=== PATIENT | female | born 1965 | race Caucasian/White ===

== ENCOUNTER 2017-04-25 10:53 | Emergency (ER) | payer BC ==
[2017-04-25 12:59] VITALS: BP 131/85
--- NOTE | 2017-04-25 13:17 | UC ---
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 Denies n/v/d - History of Current Complaint Chief Complaint: UCRespiratory Stated Complaint: SORE THROAT Time Seen by Provider: 04/25/17 11:57 Hx Obtained From: Patient Hx Last Menstrual Period: 02/07/17 Onset/Duration: Sudden Onset Severity Initially: Moderate Severity Currently: Moderate Pain Scale Used: 0-10 Numeric - 5 - Allergies/Home Medications Allergies/Adverse Reactions: Allergies Allergy/AdvReac Type Severity Reaction Status Date / Time Wasp Venom Protein Allergy Severe Anaphylatic Verified 02/08/17 14:35 Shock Bee Venom Allergy Airway Verified 02/08/17 14:35 Obstruction egg plant Allergy Hives Uncoded 04/25/17 11:13 lobster Allergy Difficulty Uncoded 04/25/17 11:13 Breathing STEROIDS AdvReac Severe See Comment Uncoded 02/08/17 14:35 Home Medications: Home Medications busPIRone TAB* [Buspar TAB *] 15 mg PO BID 04/25/17 [History Confirmed 04/25/17] PMH/Surg Hx/FS Hx/Imm Hx Other History Of: Negative For: HIV, Hepatitis B, Hepatitis C - Surgical History Surgical History: Yes Surgery Procedure, Year, and Place: [facility] [place]- . neck biopsy, RIGHT SIDED - Family History Known Family History: Positive: None, Cardiac Disease - maternal, earliest FHx - - grandmother at 42 [address], Other - no FHx of Breast CA - Social History Alcohol Use: Occasionally Substance Use Type: None, Marijuana Smoking Status (MU): Never Smoked Tobacco Have You Smoked in the Last Year: No - Immunization History Most Recent Influenza Vaccination: 2012 Most Recent Tetanus Shot: up to date Most Recent Pneumonia Vaccination: 2013 Review of Systems Constitutional: Negative, Fever ENT: Sore Throat Respiratory: Cough All Other Systems Reviewed And Are Negative: Yes Physical Exam Triage Information Reviewed: Yes Appearance: Ill-Appearing Vital Signs: Initial Vital Signs Temp 98.0 F 04/25/17 11:06 Pulse 74 04/25/17 11:06 Resp 18 04/25/17 11:06 BP 147/72 04/25/17 11:06 Pulse Ox 98 04/25/17 11:06 Vital Signs Reviewed: Yes ENT Exam: Normal Neck exam: Normal Respiratory Exam: Normal Cardiovascular Exam: Normal Abdominal Exam: Normal UC Diagnostic Evaluation - Laboratory O2 Sat by Pulse Oximetry: 100 Respiratory Course/Dx - Course Course Of Treatment: continue fluids, tylenol as needed for pain/fever, rest. Awaiting results of throat culture - Differential Dx/Diagnosis Provider Diagnoses: URI Discharge - Discharge Plan Condition: Stable Disposition: HOME Patient Education Materials: Upper Respiratory Infection (ED) Referrals: Wellington Naidu MD [Primary Care Provider] -
== END 2017-04-25 13:20 | disposition home or self-care (01) ==
LOC: UCEAST 10:53
DX: J06.9 Acute upper respiratory infection, unspecified (principal)
CPT/HCPCS: 87070; 87077; 87651; 99212; G0463

== ENCOUNTER 2017-08-21 15:38 | Emergency (ER) | payer BC ==
[2017-08-21 15:59] VITALS: BP 124/76
--- NOTE | 2017-08-21 16:33 | UC ---
General HPI - HPI Summary HPI Summary: 3 months of Left rib pain ---hurts with certian activities no known injury---DECAL CUTTER ordered a US. patient is concerned about a rib injury - History of Current Complaint Chief Complaint: UCChestPain Stated Complaint: LEFT RIB AREA PAIN Time Seen by Provider: 08/21/17 16:18 Hx Obtained From: Patient Hx Last Menstrual Period: 02/07/17 Onset/Duration: Gradual Onset, Lasting Weeks - 12 Timing: Intermittent Episodes Lasting: Pain Intensity: 6 Pain Location at: left lower rib - Allergy/Home Medications Allergies/Adverse Reactions: Allergies Allergy/AdvReac Type Severity Reaction Status Date / Time bee venom protein (honey bee) Allergy Airway Verified 08/21/17 16:07 Obstruction lisinopril Allergy Coughing Verified 08/21/17 16:08 valsartan Allergy Dizziness Verified 08/21/17 16:08 egg plant Allergy Hives Uncoded 08/21/17 16:07 lobster Allergy Difficulty Uncoded 08/21/17 16:07 Breathing STEROIDS AdvReac Severe See Comment Uncoded 08/21/17 16:07 Home Medications: Home Medications DULoxetine DR CAP* [Cymbalta CAP*] 60 mg PO ONCE 08/21/17 [History Confirmed ] Levonorgestrel (Iud) [Mirena IUD] 20 mcg IU DAILY 08/21/17 [History Confirmed ] PMH/Surg Hx/FS Hx/Imm Hx Previously Healthy: No - CLL Psychological History: Anxiety Other History Of: Negative For: HIV, Hepatitis B, Hepatitis C - Surgical History Surgical History: Yes Surgery Procedure, Year, and Place: [facility] [place]- . neck biopsy, RIGHT SIDED - Family History Known Family History: Positive: None, Cardiac Disease - maternal, earliest FHx - - grandmother at 42 from massive [place], Other - no FHx of Breast CA - Social History Occupation: Employed Full-time Lives: Alone Alcohol Use: Occasionally Substance Use Type: None Smoking Status (MU): Never Smoked Tobacco Have You Smoked in the Last Year: No - Immunization History Most Recent Influenza Vaccination: 2012 Most Recent Tetanus Shot: up to date Most Recent Pneumonia Vaccination: 2013 Review of Systems Constitutional: Negative Skin: Negative Eyes: Negative ENT: Negative Respiratory: Negative Cardiovascular: Negative Gastrointestinal: Negative Genitourinary: Negative Motor: Negative Neurovascular: Negative Musculoskeletal: Arthralgia - left anterior rib pain Neurological: Negative Psychological: Negative Is Patient Immunocompromised?: No All Other Systems Reviewed And Are Negative: Yes Physical Exam Triage Information Reviewed: Yes Appearance: Well-Appearing, No Pain Distress, Well-Nourished Vital Signs: Initial Vital Signs Temp 98.7 F 08/21/17 15:53 Pulse 77 08/21/17 15:53 Resp 17 08/21/17 15:53 BP 124/76 08/21/17 15:53 Pulse Ox 98 08/21/17 15:53 Vital Signs Reviewed: Yes Eye Exam: Normal Eyes: Positive: Conjunctiva Clear ENT Exam: Normal ENT: Positive: Normal ENT inspection, Hearing grossly normal. Negative: Nasal congestion, Trismus, Muffled voice, Hoarse voice, Sinus tenderness Dental Exam: Normal Neck exam: Normal Neck: Positive: Supple, Nontender, No Lymphadenopathy Respiratory Exam: Normal Respiratory: Positive: Chest non-tender, Lungs clear, Normal breath sounds, No respiratory distress, No accessory muscle use Cardiovascular Exam: Normal Cardiovascular: Positive: RRR, No Murmur, Pulses Normal, Brisk Capillary Refill Musculoskeletal Exam: Normal Musculoskeletal: Positive: Strength Intact, ROM Intact, No Edema Neurological Exam: Normal Neurological: Positive: Alert, Muscle Tone Normal Psychological Exam: Normal Skin Exam: Normal Diagnostics - Radiology No standard instances Xray Interpretation: No Acute Changes Radiology Interpretation Completed By: Radiologist Course/Dx - Course Course Of Treatment: plan will be to follow with primary care doctor this week for further assessment and treatment - Differential Dx - Multi-Symptom Provider Diagnoses: left anterior Chest wall pain Discharge - Sign-Out/Discharge Documenting (check all that apply): Discharge/Admit/Transfer - Discharge Plan Condition: Stable Disposition: HOME Patient Education Materials: Safe Use of NSAIDs (ED), Chest Wall Pain (ED) Referrals: Wellington Naidu MD [Primary Care Provider] - 5 Days - Billing Disposition and Condition Condition: STABLE Disposition: HOME
--- NOTE | 2017-08-21 17:02 | RAD ---
INDICATION: Rib pain COMPARISON: Chest x-ray December 15, 2015 TECHNIQUE: PA and lateral dual-energy views were obtained. FINDINGS: Bones/Soft Tissues: There are no acute bony findings. The chest x-ray shows no displaced rib fracture. If this remains a consideration, consider a detailed rib series Cardiomediastinal: The cardiomediastinal silhouette is normal. Lungs: There are no infiltrates. There is no pneumothorax. Pleura: There are no pleural effusions. Other: None IMPRESSION: NEGATIVE EXAMINATION
== END 2017-08-21 17:18 | disposition home or self-care (01) ==
LOC: UCCORT 15:38
DX: R07.89 Other chest pain (principal); Z88.8 Allergy status to other drugs, medicaments and biological substances
CPT/HCPCS: 71046; 99211; G0463

== ENCOUNTER 2017-09-18 10:03 | Emergency (ER) | payer BC ==
[2017-09-18 10:32] VITALS: BP 145/93
--- NOTE | 2017-09-18 10:50 | UC ---
Eye Complaint HPI - HPI Summary HPI Summary: Insect bite to her right upper eyelid in the night. Has some swelling no visual disturbance - History of Current Complaint Chief Complaint: UCEye Stated Complaint: EYE ISSUE Time Seen by Provider: 09/18/17 10:30 Hx Obtained From: Patient Hx Last Menstrual Period: 09/04/17; IUD ?: No Onset/Duration: Sudden Onset Timing: Constant Pain Intensity: 2 Pain Scale Used: 0-10 Numeric Location of Injury: Eye Lid (upper) Aggravating Factor(s): Nothing Alleviating Factor(s): Nothing Associated Signs And Symptoms: Positive: Negative - Allergies/Home Medications Allergies/Adverse Reactions: Allergies Allergy/AdvReac Type Severity Reaction Status Date / Time bee venom protein (honey bee) Allergy Airway Verified 09/18/17 10:16 Obstruction lisinopril Allergy Coughing Verified 09/18/17 10:16 valsartan Allergy Dizziness Verified 09/18/17 10:16 venom-wasp Allergy Anaphylatic Verified 09/18/17 10:59 Shock egg plant Allergy Hives Uncoded 09/18/17 10:16 lobster Allergy Difficulty Uncoded 09/18/17 10:16 Breathing STEROIDS AdvReac Severe See Comment Uncoded 09/18/17 10:16 Home Medications: Home Medications L.acidoph,Paracasei, B.lactis [Probiotic] 1 tab PO DAILY 09/18/17 [History Confirmed 09/18/17] Loratadine [Claritin 10 MG CAP] 10 mg PO ONCE PRN 09/18/17 [History Confirmed ] Magnesium Glycinate [Mag Glycinate] 2 cap PO DAILY 09/18/17 [History Confirmed 09/18/17] diphenhydrAMINE HCl [Diphenhydramine HCl] 1 - 2 tab PO Q8HR PRN 09/18/17 [ History Confirmed 09/18/17] PMH/Surg Hx/FS Hx/Imm Hx Psychological History: Anxiety Other History Of: Negative For: HIV, Hepatitis B, Hepatitis C - Surgical History Surgical History: Yes Surgery Procedure, Year, and Place: [facility] [place] . [place] biopsy, RIGHT SIDED; Cardiac Cath - Family History Known Family History: Positive: None, Cardiac Disease - maternal, earliest FHx - - grandmother at 42 from massive [place], Other - no FHx of Breast CA - Social History Occupation: Employed Full-time Lives: With Family Alcohol Use: Rare Substance Use Type: None Smoking Status (MU): Never Smoked Tobacco Have You Smoked in the Last Year: No - Immunization History Most Recent Influenza Vaccination: 2012 Most Recent Tetanus Shot: up to date Most Recent Pneumonia Vaccination: 2013 Review of Systems Constitutional: Negative Skin: Negative Eyes: Other - swollen right upper eye li ENT: Negative Respiratory: Negative Cardiovascular: Negative Gastrointestinal: Negative Genitourinary: Negative Motor: Negative Neurovascular: Negative Musculoskeletal: Negative Neurological: Negative Psychological: Negative Is Patient Immunocompromised?: No All Other Systems Reviewed And Are Negative: Yes Physical Exam Triage Information Reviewed: Yes Appearance: Well-Appearing, No Pain Distress, Well-Nourished Vital Signs: Initial Vital Signs Temp 97.3 F 09/18/17 10:22 Pulse 72 09/18/17 10:22 Resp 16 09/18/17 10:22 BP 145/93 09/18/17 10:22 Pulse Ox 96 09/18/17 10:22 Vital Signs Reviewed: Yes Eye Exam: Other Eyes: Positive: Conjunctiva Clear, Other: - right upper lid swollen ENT Exam: Normal ENT: Positive: Normal ENT inspection, Hearing grossly normal. Negative: Trismus , Muffled voice, Hoarse voice Dental Exam: Normal Neck exam: Normal Neck: Positive: Supple, Nontender Respiratory Exam: Normal Respiratory: Positive: Chest non-tender, No respiratory distress, No accessory muscle use Cardiovascular Exam: Normal Cardiovascular: Positive: RRR, Pulses Normal, Brisk Capillary Refill Musculoskeletal Exam: Normal Musculoskeletal: Positive: Strength Intact, ROM Intact, No Edema Neurological Exam: Normal Neurological: Positive: Alert, Muscle Tone Normal Psychological Exam: Normal Skin Exam: Normal Eye Complaint Course/Dx - Course Course Of Treatment: ice, pepcid, zaditor, antihistamine, follow with pcp prn - Differential Dx/Diagnosis Provider Diagnoses: insect bite right upper eye lid Discharge - Sign-Out/Discharge Documenting (check all that apply): Discharge/Admit/Transfer - Discharge Plan Condition: Stable Disposition: HOME Prescriptions: Famotidine TAB 40 MG(NF) [Pepcid TAB 40 MG(NF)] 40 mg PO DAILY #4 tab Ketotifen Fumarate [Zaditor] 0.025 % OP BID #1 bottle Patient Education Materials: Insect Bite or Sting (ED), Hypertension (ED), Ice Pack Application (ED) Referrals: Law,Wellington, MD [Primary Care Provider] - 1 Week - Billing Disposition and Condition Condition: STABLE Disposition: Home
[2017-09-18] MEDS ORDERED: Famotidine TAB* 20 MG PO ONE (10:52)
== END 2017-09-18 11:14 | disposition home or self-care (01) ==
LOC: UCEAST 10:03
DX: S00.261A Insect bite (nonvenomous) of right eyelid and periocular area, initial encounter (principal); W57.XXXA Bitten or stung by nonvenomous insect and other nonvenomous arthropods, initial encounter; Y93.9 Activity, unspecified; Y92.9 Unspecified place or not applicable; F41.9 Anxiety disorder, unspecified; Z91.030 Bee allergy status; Z88.8 Allergy status to other drugs, medicaments and biological substances; Z91.018 Allergy to other foods; Z82.49 Family history of ischemic heart disease and other diseases of the circulatory system
CPT/HCPCS: 99212; A9270-GY; G0463

== ENCOUNTER 2018-02-02 13:36 | Inpatient (IN) | payer BC ==
[2018-02-02] MEDS ORDERED: NS 0.9% 1000 ML* 1,000 ML IV ONE (13:53)
--- OUTSIDE RECORDS SUMMARY | 2018-02-02 13:59 | XMS REPORT ---
:1965 External Reference #:[id number] Author Organization [employer] Address [address] [place] [address] Phone [phone] Care Team Providers Name Role Phone Wellington Naidu MD Care Team Information Clay Grinder Unavailable Wellington Naidu MD Primary Care Physician Unavailable Payers Type Date Identification Numbers Payment Provider Subscriber Commercial Effective: Policy Number: [id number] [employer] Bobbi Slater 2016 PayID: [id number] [address] [address] [place] [address] Workers Compensation Onset: 2012 Policy Number: [facility] [employer] Bobbi Slater [id number] [employer] PayID: [id number] [address] [place] [address] Problems Date Description Provider Status Onset: 01/29/2018 Muscle weakness Gualberto Krueger M.D. 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 Active remission Onset: 01/29/2018 Chronic fatigue syndrome Gualberto Krueger M.D. Active Onset: 12/26/2015 Hyperlipidemia Guille Quintanilla M.D., [facility], Active FSCAI Onset: 12/26/2015 Abnormal results of Guille Quintanilla M.D., [facility], Active cardiovascular function studies FSCAI Onset: 03/21/2015 Obesity Brittany Wood MD Active Onset: 03/21/2015 Obstructive sleep apnea syndrome Brittany Wood MD Active Family History Date Family Member(s) Problem(s) Comments General [place] General Heart Disease General Hypertension Father Hypertension Mother Hypertension Mother Lewy Body Dementia Social History Type Date Description Comments Marital Status Lives With Alone 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 Cigarette Use Never Smoked Cigarettes ETOH Use Rarely consumes alcohol Smoking Patient has never smoked Recreational Drug Use Denies Drug Use Daily Caffeine Does Not Consume Caffeine Exercise Type/Frequency Exercises regularly Allergies, Adverse Reactions, Alerts Date Description Reaction Status Severity Comments 12/24/2015 EpiPen Nausea and active Vomiting 12/26/2015 Eggplant active 12/26/2015 Lobster, Scallops, active Eel 06/25/2017 Lisinopril active Moderate 06/25/2017 Valsartan active Moderate to Severe 05/17/2015 NKDA inactive Medications Medication Date Status Form Strength Qnty SIG Indications Ordering Provider Fish Oil 04/16 Active Capsules 1000mg 2 by mouth every day Probiotic 04/16 Active Capsules 1 by mouth every Unknown 2015 Cymbalta 03/[address] 60mg 1 by mouth every day Vitamin B 03/20 Active Tablets 1 by mouth every Unknown Complex 2014 Vitamin D 03/20 Active Capsules 5000Unit by mouth every day Xanax Active Tablets 0.25mg one by mouth up Unknown / to three times daily as needed for anxiety Candex Active 1 po qd Unknown / Epinephrine Active Solution 0.3mg/0.3 Use Unknown / Auto-Inje ML Intramuscularly ct One Time May Repeat One Time Bipap Active Device for use while Unknown / sleeping Hydrocodone/A 02/04 Hx Tablets 5-325mg 60tab 1-2 po qid prn Juan F cet /2011 Arpan Schwartz M.D. 04/16 Fish Oil Hx Capsules 300mg 1 by mouth every Unknown / day - 03/20 Valsartan-Hyd Hx Tablets 160-25mg 1 by mouth every Unknown rochlorothiaz / day connie Epipen 2-Luis A Hx Solution 0.3mg/0.3 use as directed Unknown / Auto-Inje ML ct Aspirin Adult Hx Tablets 81mg 1 by mouth every Unknown Low Dose /0000 DR day Metoprolol Hx Tablets 25mg 1 by mouth every Unknown Succinate ER /0000 ER 24HR day Cartia XT Hx Caps ER 180mg 1 by mouth every Unknown /0000 24HR day Tamsulosin Hx Capsules 0.4mg 1 by mouth every Unknown HCL /0000 day - 01/28 Docusate 00/00 Hx Unknown Sodium /0000 - 01/28 Medications Administered in Office Medication Date Status Form Strength Qnty SIG Indications Ordering Provider Technetium TC Administered Injection Keny Mehta [id number] Paul Danielle M.D., [facility], Per Unit Dose FASNC Up To 40 Millicuries Immunizations CPT Code Status Date Vaccine Lot # [id number] Given 01/17/2015 Influenza Virus 3Yrs & Over Vital Signs Date Vital Result Comment 01/29/2018 Height 65 inches 5'5" Weight 234.00 lb Heart Rate 96 /min BP Systolic 142 mmHg BP Diastolic 86 mmHg Respiratory Rate 16 /min BMI (Body Mass Index) 38.9 kg/m2 06/25/2017 Height 65 inches 5'5" Weight 215.00 lb Heart Rate 62 /min BP Systolic 154 mmHg BP Diastolic 100 mmHg Respiratory Rate 16 /min Body Temperature 98.6 F BMI (Body Mass Index) 35.8 kg/m2 08/12/2016 Height 65 inches 5'5" Weight 206.00 lb Heart Rate 78 /min BP Systolic Sitting 126 mmHg BP Diastolic Sitting 86 mmHg O2 % BldC Oximetry 96 % BMI (Body Mass Index) 34.3 kg/m2 01/14/2016 Height 65 inches 5'5" Weight 222.00 lb Heart Rate 74 /min 88 BP Systolic Sitting 116 mmHg right arm, reg cuff BP Diastolic Sitting 78 mmHg right arm, reg cuff BP Systolic Standing 120 mmHg right arm, reg cuff BP Diastolic Standing 78 mmHg right arm, reg cuff Respiratory Rate 20 /min BMI (Body Mass Index) 36.9 kg/m2 Ejection Fraction 55% 12/26/15 Cath 12/26/2015 Height 65 inches 5'5" Weight 223.00 lb Heart Rate 72 /min 80 BP Systolic 116 mmHg left arm, reg cuff BP Diastolic 76 mmHg left arm, reg cuff BP Systolic Sitting 114 mmHg right arm, reg cuff BP Diastolic Sitting 76 mmHg right arm, reg cuff BP Systolic Standing 114 mmHg right arm, reg cuff BP Diastolic Standing 74 mmHg right arm, reg cuff Respiratory Rate 16 /min BMI (Body Mass Index) 37.1 kg/m2 Ejection Fraction 78-86% 12/25/15 Nem 05/17/2015 Height 65 inches 5'5" Weight 224.00 lb Heart Rate 88 /min BP Systolic 124 mmHg BP Diastolic 68 mmHg Respiratory Rate 14 /min O2 % BldC Oximetry 98 % BMI (Body Mass Index) 37.3 kg/m2 04/17/2015 Height 65 inches 5'5" Weight 224.00 lb Heart Rate 86 /min BP Systolic 128 mmHg BP Diastolic 76 mmHg Respiratory Rate 14 /min O2 % BldC Oximetry 98 % BMI (Body Mass Index) 37.3 kg/m2 03/21/2015 Height 65 inches 5'5" Weight 224.50 lb Heart Rate 89 /min BP Systolic 132 mmHg BP Diastolic 82 mmHg Respiratory Rate 14 /min O2 % BldC Oximetry 96 % BMI (Body Mass Index) 37.4 kg/m2 02/05/2012 Weight 182.00 lb Heart Rate 81 /min BP Systolic 118 mmHg BP Diastolic 80 mmHg Results Description No Information Procedures Date CPT Code Description Status Comment 10/20/2017 69136 Biopsy Skin Lesion Single Completed 01/18/2016 31113 ECHO Transthoracic, Real-Time 2D With Doppler Completed And Color Flow 01/07/2016 91548 Holter Monitor Review (24 hr)dr rahman & blaire Completed only 12/26/2015 81754 Cath PLMT&NJX L Ventriculog Img S&I Completed 12/26/2015 46631 EKG Tracing & Interpretation Completed 12/25/2015 35025 Stress Test Completed 12/25/2015 10875 Myocardial Perfusion Imaging Tomographic Completed (Spect) Multiple Studies 12/16/2015 57857 EKG, Interpretation Only Completed 12/15/2015 45359 EKG, Interpretation Only Completed 04/10/2015 40514 Polysomnography Sleep Staging 4+ Parameters Completed W/Cpap 07/07/2013 41238 Polysomnography Sleep Staging 4+ Parameters Completed W/Cpap 02/12/2012 79334 Rad Exam; Wrist Limited, 2 Views Completed 02/12/2012 76101 Rad Exam; Elbow, Limited Completed 02/05/2012 18191 Rad Exam; Wrist, Comp, Min 3 Views Completed 02/05/2012 53069 Rad Exam; Elbow, Limited Completed 02/05/2012 37236 Long Arm Cast Application Completed 02/05/2012 32512 Closed Treatment Radial Head Or Neck FX W/O Completed LT Manipulation 12/23/2011 97421 Polysomnography Sleep Staging 4+ Parameters Completed W/Cpap Encounters Type Date Location Provider CPT E/M Dx Office Visit 01/29/2018 [facility] Gualberto Krueger, 89792 R53.82 8:30a [facility] Khari C91.11 G47.33 M62.81 Office Visit 12/03/2017 8:40a [facility] [place] [address] L23.7 Office Visit 06/25/2017 3:00p [facility] [place] [address] 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 Neeta Win, 7[address] T67.5xxA Assoc, Hospitalists D.O. R07.9 R79.89 G47.33 Office Visit 05/17/2015 3:15p Pul[place] [address] G47.33 Services Of [employer] E66.09 Office Visit 04/17/2015 11:45a Pul[facility] [address] G47.33 Services Of [employer] E66.09 Office Visit 03/21/2015 3:45p Pulmon[place] [address] G47.33 Services Of [facility] E66.09 Office Visit 09/15/2013 3:02p [facility] Rylan Serna 59179 327.23 M.D. Office Visit 07/07/2013 3:39p [facility] Rylan Serna 39469 327.23 M.D. Office Visit 05/11/2012 3:45p [facility] Juan F Aleman M.D. 23342 813.05 C.M.A. 726.32 Office Visit 11/07/2011 4:02p [facility] Tyler Disla 92647 327.23 Disorder Center Khari Plan of Care Future Appointment(s):02/18/2018 10:30 am - Gualberto Krueger M.D. at [facility]01/29/2018 - Gualberto Krueger M.D.R53.82 Chronic fatigue, unspecifiedNew Xrays:MRI Brain W/WoFollow up:Follow up in 3 weeks before follow up at [facility]. Ok to over book, 30 min appointmentRecommendations:Sign PATRICIA for [facility] fipcaR22.11 Chronic lymphocytic leukemia of B-cell type in lysfffyavZ26.33 Obstructive sleep apnea ( adult) (pediatric)M62.81 Muscle weakness (generalized)
[2018-02-02 14:30] LABS: Hematocrit 40 % (35-47); Hemoglobin 13.2 g/dl (12.0-16.0); Mean Corpuscular HGB Conc 33 g/dl (31-36); Mean Corpuscular Hemoglobin 28 pg (27-31); Mean Corpuscular Volume 83 fL (80-97); Mean Platelet Volume 6.9 um3 (7.4-10.4); Platelet Count 285 10^3/ul (150-450); Red Cell Distribution Width 15 % (10.5-15); White Blood Count 32.3 10^3/ul (3.5-10.8)
[2018-02-02 14:33] LABS: INR 0.98 (0.77-1.02)
--- NOTE | 2018-02-02 14:50 | RAD ---
HISTORY: weakness COMPARISONS: November 18, 2013 TECHNIQUE: Multiple contiguous axial CT scans were obtained of the head without intravenous contrast. FINDINGS: HEMORRHAGE/INFARCT: There is no hemorrhage or acute infarct. MASSES/SHIFT: There is no mass or shift. EXTRA-AXIAL SPACES: There are no extra-axial fluid collections. There is a small focus of fat attenuation within the prepontine cistern consistent with a small [employer] lipoma. SULCI AND VENTRICLES: The sulci and ventricles are normal in size and position for the patient's stated age. CEREBRUM: There are no focal parenchymal abnormalities. BRAINSTEM: There are no focal parenchymal abnormalities. CEREBELLUM: There are no focal parenchymal abnormalities. VESSELS: The vessels are grossly normal. PARANASAL SINUSES: The paranasal sinuses are clear. ORBITS: The orbits are unremarkable. BONES AND SOFT TISSUE: No bone or soft tissue abnormalities are noted. OTHER: None IMPRESSION: NO ACUTE INTRACRANIAL PATHOLOGY.
--- NOTE | 2018-02-02 14:51 | ED ---
Complex/Multi-Sys Presentation - HPI Summary HPI Summary: Pt is a 52 y/o female who presents to the ED c/o weakness. She states she began to feel bad 3 months ago, but has worsened in the past 3 days. Pt is having a difficult time speaking, and is worried because she lives alone. She also c/o intermittent REA, TRINIDAD, and fatigue. Pt denies any depression. Pt has had CLL since 2004. 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 She denies any numbness or tingling. Pt has had an abdominal rash for 3 months as well, which moves around to different locations on her abdomen and is itchy. She c/o blurry vision and occasional shooting pains in her eye, but denies any diploplia. Pt fell twice recently, and has a large cut on her left knee. She is scheduled for an MRI soon. - History Of Current Complaint Chief Complaint: EDWeakness Time Seen by Provider: 02/02/18 13:52 Hx Obtained From: Patient Onset/Duration: Gradual Onset, Lasting Weeks - 3 months, Worse Since Timing: Constant Associated Signs And Symptoms: Positive: Weakness, Headache. Negative: Chest Pain - Allergies/Home Medications Allergies/Adverse Reactions: Allergies Allergy/AdvReac Type Severity Reaction Status Date / Time bee venom protein (honey bee) Allergy Airway Verified 09/18/17 10:16 Obstruction lisinopril Allergy Coughing Verified 09/18/17 10:16 valsartan Allergy Dizziness Verified 09/18/17 10:16 venom-wasp Allergy Anaphylatic Verified 09/18/17 10:59 Shock egg plant Allergy Hives Uncoded 09/18/17 10:16 lobster Allergy Difficulty Uncoded 09/18/17 10:16 Breathing STEROIDS AdvReac Severe See Comment Uncoded 09/18/17 10:16 Home Medications: Home Medications Cholecalciferol TAB* [Vitamin D TAB*] 5,000 units PO DAILY 02/02/18 [History Confirmed 02/02/18] DULoxetine DR MALONE* [Cymbalta CAP*] 60 mg PO DAILY 02/02/18 [History Confirmed ] EPINEPHrine [Epipen 2-Luis A] 0.3 mg IM ONCE PRN 02/02/18 [History Confirmed ] [place]-3 Fatty Acids (Nf) [Fish Oil (NF)] 2,000 mg PO DAILY 02/02/18 [History Confirmed 02/02/18] PMH/Surg Hx/FS Hx/Imm Hx Endocrine/Hematology History: Reports: Other Endocrine/Hematological Disorders - chronic lymphocytic leukemia Denies: Hx Diabetes, Hx Thyroid Disease, Hx Anemia Cardiovascular History: Reports: Hx Hypertension Denies: Hx Congestive Heart Failure, Hx Deep Vein Thrombosis, Hx Myocardial Infarction, Hx Pacemaker/ICD Respiratory History: Reports: Hx Chronic Bronchitis, Hx Sleep Apnea - current BiPAP user, Other Respiratory Problems/Disorders - Bronchitis a few times Denies: Hx Asthma, Hx Chronic Obstructive Pulmonary Disease (COPD), Hx Lung Cancer GI History: Denies: Hx Gall Bladder Disease, Hx Gastrointestinal Bleed, Hx Jaundice, Hx Ulcer, Hx Urosepsis History: Denies: Hx Kidney Stones, Hx Renal Disease Musculoskeletal History: Reports: Other Musculoskeletal History - plantar fascitis in left foot Sensory History: Reports: Hx Contacts or Glasses Opthamlomology History: Reports: Hx Contacts or Glasses Neurological History: Denies: Hx Dementia, Hx Migraine, Hx Seizures, Hx Transient Ischemic Attacks (TIA) Psychiatric History: Reports: Hx Anxiety, Hx Depression - Cancer History Cancer Type, Location and Year: CLL Hx Chemotherapy: No Hx Radiation Therapy: No - Surgical History Surgery Procedure, Year, and Place: [facility]- . neck biopsy, RIGHT SIDED; Cardiac Cath Hx Anesthesia Reactions: No Infectious Disease History: No Infectious Disease History: Denies: Hx Clostridium Difficile, Hx Hepatitis, Hx Human Immunodeficiency Virus (HIV), Hx of Known/Suspected MRSA, Hx Shingles, Hx Tuberculosis, Hx Known/ Suspected VRE, Hx Known/Suspected VRSA, History Other Infectious Disease, Traveled Outside the [place] in Last 30 Days - Family History Known Family History: Positive: Cardiac Disease - maternal, earliest FHx -- grandmother at 42 from massive NM, Other - no FHx of Breast CA - Social History Alcohol Use: Rare Hx Substance Use: No Substance Use Type: Reports: None Hx Tobacco Use: No Smoking Status (MU): Never Smoked Tobacco Have You Smoked in the Last Year: No Review of Systems Positive: Fatigue Positive: Blurred Vision, Other - Shooting eye pains. Negative: Diplopia Positive: Other - TRINIDAD Positive: Rash Positive: Headache, Weakness. Negative: Paresthesia, Numbness Negative: Depressed All Other Systems Reviewed And Are Negative: Yes Physical Exam - Summary Physical Exam Summary: Appearance: Well appearing, no pain distress Skin: warm, dry, reflects adequate perfusion, erythematous patch of dermatitis on L groin area, scar just below left knee Head/face: normal Eyes: EOMI, JEFF ENT: mucous membranes moist Neck: supple, non-tender Respiratory: CTA, breath sounds present Cardiovascular: RRR, pulses symmetrical Abdomen: non-tender, soft Bowel Sounds: present Musculoskeletal: normal, strength/ROM intact Neuro: sensory motor intact, A&Ox3, global weakness without focality, generalized weakness to voice wihout dysarthria, cranial nerves intact, 2+ patellar DTRs GCS: 15 Triage Information Reviewed: Yes Vital Signs On Initial Exam: Initial Vitals Temp Pulse Resp BP Pulse Ox 97.4 F 84 16 150/89 94 02/02/18 13:39 02/02/18 13:39 02/02/18 13:39 02/02/18 13:39 02/02/18 13:39 Vital Signs Reviewed: Yes Diagnostics - Vital Signs Vital Signs Temp Pulse Resp BP Pulse Ox 02/02/18 14:23 81 157/98 94 02/02/18 14:00 91 94 02/02/18 13:50 83 138/77 93 02/02/18 13:49 84 93 02/02/18 13:39 97.4 F 84 16 150/89 94 - Laboratory Lab Results: Lab Results 02/02/18 02/02/18 02/02/18 Range/Units 14:12 14:12 14:12 WBC 32.3 H (3.5-10.8) 10^3/ul RBC 4.80 (4.00-5.40) 10^6/ul Hgb 13.2 (12.0-16.0) g/dl Hct 40 (35-47) % MCV 83 (80-97) fL MCH 28 (27-31) pg MCHC 33 (31-36) g/dl RDW 15 (10.5-15) % Plt Count 285 (150-450) 10^3/ul MPV 6.9 L (7.4-10.4) um3 Neut % (Auto) Pending Lymph % (Auto) Pending [place]anan % (Auto) Pending Eos % (Auto) Pending Baso % (Auto) Pending Absolute Neuts (auto) Pending Absolute Lymphs (auto) Pending Absolute Monos (auto) Pending Absolute Eos (auto) Pending Absolute Basos (auto) Pending Absolute Nucleated RBC Pending Nucleated RBC % Pending INR (Anticoag Therapy) 0.98 (0.77-1.02) Sodium 137 (135-145) mmol/L Potassium 4.2 (3.5-5.0) mmol/L Chloride 102 (101-111) mmol/L Carbon Dioxide 31 (22-32) mmol/L Anion Gap 4 (2-11) mmol/L BUN 14 (6-24) mg/dL Creatinine 0.77 (0.51-0.95) mg/dL Est GFR ( Amer) 95.6 (>60) Est GFR (Non-Af Amer) 79.0 (>60) BUN/Creatinine Ratio 18.2 (8-20) Glucose 102 H (70-100) mg/dL Lactic Acid (0.5-2.0) mmol/L Calcium 9.9 (8.6-10.3) mg/dL Phosphorus 3.0 (2.5-5.0) mg/dL Magnesium 2.1 (1.9-2.7) mg/dL Total Bilirubin 1.10 H (0.2-1.0) mg/dL AST 19 (13-39) U/L ALT 18 (7-52) U/L Alkaline Phosphatase 60 (34-104) U/L Total Creatine Kinase 55 (10-223) U/L Troponin I 0.00 (<0.04) ng/mL C-Reactive Protein 4.92 (<8.01) mg/L Total Protein 7.0 (6.4-8.9) g/dL Albumin 4.0 (3.2-5.2) g/dL Globulin 3.0 (2-4) g/dL Albumin/Globulin Ratio 1.3 (1-3) TSH Pending 02/02/18 Range/Units 14:12 WBC (3.5-10.8) 10^3/ul RBC (4.00-5.40) 10^6/ul Hgb (12.0-16.0) g/dl Hct (35-47) % MCV (80-97) fL MCH (27-31) pg MCHC (31-36) g/dl RDW (10.5-15) % Plt Count (150-450) 10^3/ul MPV (7.4-10.4) um3 Neut % (Auto) Lymph % (Auto) Buchanan % (Auto) Eos % (Auto) Baso % (Auto) Absolute Neuts (auto) Absolute Lymphs (auto) Absolute Monos (auto) Absolute Eos (auto) Absolute Basos (auto) Absolute Nucleated RBC Nucleated RBC % INR (Anticoag Therapy) (0.77-1.02) Sodium (135-145) mmol/L Potassium (3.5-5.0) mmol/L Chloride (101-111) mmol/L Carbon Dioxide (22-32) mmol/L Anion Gap (2-11) mmol/L BUN (6-24) mg/dL Creatinine (0.51-0.95) mg/dL Est GFR ( Amer) (>60) Est GFR (Non-Af Amer) (>60) BUN/Creatinine Ratio (8-20) Glucose (70-100) mg/dL Lactic Acid 1.0 (0.5-2.0) mmol/L Calcium (8.6-10.3) mg/dL Phosphorus (2.5-5.0) mg/dL Magnesium (1.9-2.7) mg/dL Total Bilirubin (0.2-1.0) mg/dL AST (13-39) U/L ALT (7-52) U/L Alkaline Phosphatase (34-104) U/L Total Creatine Kinase (10-223) U/L Troponin I (<0.04) ng/mL C-Reactive Protein (<8.01) mg/L Total Protein (6.4-8.9) g/dL Albumin (3.2-5.2) g/dL Globulin (2-4) g/dL Albumin/Globulin Ratio (1-3) TSH Result Diagrams: 02/02/18 14:12 02/02/18 14:12 Lab Statement: Any lab studies that have been ordered have been reviewed, and results considered in the medical decision making process. - Radiology CXR Radiology Interpretation Completed By: Radiologist - NO ACTIVE CARDIOPULMONARY DISEASE. ED physician reviewed radiology report. - CT Brain CT CT Interpretation Completed By: Radiologist - NO ACUTE INTRACRANIAL PATHOLOGY. ED physician reviewed radiology report. - EKG 14:07 Cardiac Rate: NL - 78 bpm EKG Rhythm: Sinus Rhythm ST Segment: Normal Summary of EKG Findings: Nl axis, nl interval Complex Multi-Symp Course/Dx Course Of Treatment: Patient with chronic weakness now worsened to the point where she is having difficulty walking. She is not able to support her own weight on her walker. She does have a history of CLL and is currently undergoing outpatient neurology evaluation. Most of her laboratories are still pending in our system. Head CT and laboratories here are unrevealing other than the elevated white blood cell count consistent with her diagnosis of CLL. Patient is profoundly weak and will require admission and further evaluation/ treatment. - Diagnoses Differential Diagnoses/HQI/PQRI: Metabolic Abnormality, Other - Paraneoplastic syndrome, myasthenia gravis, Lambert-Eaton syndrome, botulinum Provider Diagnoses: CLL (chronic lymphocytic leukemia), Generalized weakness - Physician Notifications Discussed Care Of Patient With: Yessenia Palacios Time Discussed With Above Provider: 15:12 Instructed by Provider To: Admit As Inpatient Discharge - Sign-Out/Discharge Documenting (check all that apply): Patient Departure - Admit - Discharge Plan Condition: Stable Disposition: ADMITTED TO [facility] Referrals: Wellington Naidu MD [Primary Care Provider] - - Billing Disposition and Condition Condition: STABLE Disposition: Admitted to [facility] - Attestation Statements Document Initiated by Artem: Yes Documenting Scribe: Alisa Cruz Provider For Whom Artem is Documenting (Include Credential): Dangelo Thornton MD Scribe Attestation: Alisa Farris scribed for Dangelo Thornton MD on 02/02/18 at 1752. Scribe Documentation Reviewed: Yes Provider Attestation: The documentation as recorded by the Alisa colby accurately reflects the service I personally performed and the decisions made by me, Dangelo Thornton MD
[2018-02-02 14:53] LABS: ABS Basophils 0.2 10^3/ul (0-0.2); ABS Eosinophils 0.4 10^3/ul (0-0.6); ABS Lymphocytes 25.1 10^3/ul (1.0-4.8); ABS Monocytes 0.8 10^3/ul (0-0.8); ABS Neutrophils 5.8 10^3/ul (1.5-7.7); ABS Nucleated RBC 0.2 10^3/ul; Eosinophil % 1.1 % (0-6); Lymphocyte % 77.7 % (25-47); Nucleated Red Blood Cells % 0.5
--- NOTE | 2018-02-02 15:19 | RAD ---
HISTORY: CLL, weakness COMPARISONS: November 21, 2017 VIEWS: 1: frontal AP view of the chest at 2:45 PM FINDINGS: LINES AND TUBES: None. CARDIOMEDIASTINAL SILHOUETTE: The cardiomediastinal silhouette is normal for portable technique. PLEURA: The costophrenic angles are sharp. No pleural abnormalities are noted. LUNG PARENCHYMA: The lungs are clear. ABDOMEN: The upper abdomen is clear. There is no subphrenic gas. BONES AND SOFT TISSUES: No bone or soft tissue abnormalities are noted. IMPRESSION: NO ACTIVE CARDIOPULMONARY DISEASE.
[2018-02-02 15:28] LABS: Urine Appearance Cloudy; Urine Blood Negative (Negative); Urine Color Yellow; Urine Ketones Negative (Negative); Urine Protein Negative (Negative); Urine Specific Gravity 1.009 (1.010-1.030); Urine Urobilinogen Negative (Negative)
[2018-02-02] MEDS ORDERED: Ondansetron INJ* 2 MG/ML VIAL IV PRN (18:00)
[2018-02-02] MEDS ORDERED: Al Hydrox/Mg Hydrox/Simet LIQ* 30 ML UDC PO PRN (18:00)
[2018-02-02] MEDS: NS 0.9% 1000 ML* 1,000 ML IV SCH (19:20)
--- NOTE | 2018-02-02 21:07 | HP ---
AMENDED REPORT NOW INCLUDES DESIGNATED COSIGNER CC: Dr. Wellington Naidu; Dr. Lesvia Man * HISTORY AND PHYSICAL: DATE OF ADMISSION: 02/02/18 PRIMARY CARE PROVIDER: Dr. Wellington Naidu. ONCOLOGIST: Dr. Lesvia Man. ATTENDING PHYSICIAN: Dr. Elizabeth Neves * (dictated by Anna Clay NP). CHIEF COMPLAINT: 1. Weakness. 2. Fatigue. HISTORY OF PRESENT ILLNESS: Ms. Slater is a 52-year-old female with past medical history of CLL, hypertension, obstructive sleep apnea, depression, and anxiety, who presented to the emergency room today with complaints of weakness and fatigue. She notes that since October, she has had progressive weakness and fatigue; however, it has gotten much worse in the last 3 days. She reports that yesterday, she got a walker to assist her with walking and this morning she felt too weak to hold on to the walker and she came to the emergency room. She notes that she feels as though she has "tremors on the inside." She reports feeling slow mentally. She has a difficult time speaking and finding words. She is taking approximately five to six 30-minute naps per day. She notes an increased startle reflex. She feels as though she is moving in "slow motion." She reports a good appetite, though does report heartburn and nausea after eating. She has fallen twice in the last month. The etiology of these falls is unclear, although it sounds mechanical from her description. She does note occasional pain when her "glands" are swollen around her neck and chest. She reports itching from the inside. She does admit that she is slightly paranoid about developing Lewy body dementia as her mother has been diagnosed with this and is now severely demented. There is no known precipitating event for these symptoms. She does not feel particularly depressed. No fevers, cough , abdominal pain, or visual complaints. She saw Dr. Krueger from Neurology in the office on 01/29/18 who ordered an extensive lab workup and a brain MRI which the patient has not yet had. In the emergency room, she had an unremarkable workup except for an elevated white blood count which can be attributed to her CLL. A brain CT was unremarkable as was her chest x-ray. PAST MEDICAL HISTORY: 1. Chronic lymphocytic leukemia. 2. Hypertension. 3. Obstructive sleep apnea, on BiPAP at night. 4. Depression. 5. Anxiety. PAST SURGICAL HISTORY: 1. section. HOME MEDICATIONS: 1. [place]-3 fatty acids 2000 mg p.o. daily. 2. Candex 1 tab p.o. daily. 3. Alprazolam 0.25 mg p.o. t.i.d. p.r.n. 4. Vitamin D 5000 units p.o. daily. 5. Vitamin B complex 1 cap p.o. daily. 6. Probiotic 1 tab p.o. daily. 7. Duloxetine 60 mg p.o. daily. ALLERGIES: LISINOPRIL, VALSARTAN, STEROIDS, EGGPLANT, and LOBSTER. FAMILY HISTORY: Mother alive with hypertension and Lewy body dementia. Father alive with hypertension. SOCIAL HISTORY: She denies any tobacco use. Reports approximately 1 alcoholic drink per month. Denies recreational drug use. 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 She lives alone. Her son, Eric, will be her surrogate decision maker in the event she is unable to make her own decisions. She does note that Eric lives out of the area and that she has a friend in the area, who would also help make medical decisions. Her name is Nona Babin and her phone number is [phone]. REVIEW OF SYSTEMS: An 11-point review of systems was performed and all the pertinent positive and negative findings are in the HPI. All other systems are negative. PHYSICAL EXAMINATION GENERAL: Ms. Slater is a well-developed, well-nourished, overweight, white woman , lying in bed, in no acute distress. She appears her stated age. VITAL SIGNS: Temp 97.4, heart rate 94, respiratory rate 16, oxygen saturation 97 % on room air, blood pressure 137/80. HEENT: Head is normocephalic and atraumatic. Visual burnham are grossly intact. Pupils are equal, round, and reactive to light and accommodation. Extraocular movements intact. Hearing is grossly intact. Oral mucous membranes are moist and without lesions. NECK: Full range of motion. Thyroid not palpable. Trachea at midline. No lymphadenopathy. RESPIRATORY: Symmetrical chest expansion. No chest wall deformities. Lungs are clear to auscultation throughout. No rhonchi, wheezes, or rales. CARDIOVASCULAR: Regular rate and rhythm. S1, S2 present. No murmurs, rubs, or gallops. No JVD. ABDOMEN: Soft, nontender to palpation. Bowel sounds normoactive throughout. No bruits appreciated. No hepatosplenomegaly. EXTREMITIES: Skin warm and smooth bilaterally. No edema. No clubbing or cyanosis. Pedal pulses 2+ bilaterally. MUSCULOSKELETAL: Full range of motion. No pain or deformities. NEURO: Awake, alert, and oriented x4, though slow to respond. Cranial nerves II through XII are grossly intact. Moves all extremities. Motor strength is 4/ 5 in upper and lower extremities bilaterally. Handgrips are equal. No focal neuro deficits. SKIN: Grossly intact. She has a small area of erythema to her left groin. DIAGNOSTIC STUDIES/LAB DATA: WBC 32.3, RBC 4.8, hemoglobin 13.2, hematocrit 40 , platelets 285. INR 0.98. Sodium 137, potassium 4.2, chloride 102, carbon dioxide 31, BUN 14, creatinine 0.77, glucose 102, lactic acid 1.0, magnesium 2.1. Total bili 1.1. Total creatine kinase of 55. Troponin 0.00. CRP 4.92. BNP 12. TSH 2.36. Urinalysis unremarkable. Brain CT reads as no acute intracranial pathology. Chest x-ray reads as no active cardiopulmonary disease. EKG personally reviewed shows normal sinus rhythm with a rate of 78. ASSESSMENT AND PLAN: Ms. Slater is a 52-year-old female with past medical history of chronic lymphocytic leukemia, hypertension, obstructive sleep apnea, depression and anxiety, who presented to the emergency room today with complaints of increasing weakness and fatigue. The patient will be admitted to observation for: 1. Weakness. The patient has no focal neuro deficits and is generally weak. She is also somewhat slow to respond. She saw Dr. Krueger on 01/29/18 in the office and he ordered multiple labs at that time including free T4, which was 0.86; myoglobin, which was 21.6; aldolase, which was 5.1; creatine kinase, which was 55; myasthenia gravis interpretation, which is pending; MuSK antibody , which was 0.00; JEF, which was negative; ESR, which was 22; CRP, which was 4.92; CBC, which is noted above; CMP, also noted above; AST, ALT, and alk phos are within normal limits; Paula- Cortez panel, which was negative, though the comment indicates results suggest past infection; tick-borne panel, which was negative; myositis antibody panel, which is pending; paraneoplastic evaluation, which was unremarkable; vitamin B12, which was 972; folate, which was greater than 20. He additionally ordered a brain MRI, which the patient has not had as of yet. I spoke with Dr. Palacios from Neurology, who states he will see the patient in the morning. He advised me to hold off on any further testing at this time as he would like to see the patient and determine the need for workup at that point. I will order a physical therapy and occupational therapy eval. I will also put in an order to obtain records from her most recent visit with her oncologist at [facility]. 2. Chronic lymphocytic leukemia. The patient is stable at this time and is currently not undergoing any active treatment. I will recheck a CBC in the morning. 3. Hypertension. The patient does not take any home medications. She has been slightly hypertensive in the emergency room, though last documented blood pressure was 127/61, so I will hold off on any medication at this point. 4. Obstructive sleep apnea. The patient has her own BiPAP, which she can use here in the hospital. 5. Depression and anxiety. I will continue her alprazolam and duloxetine. 6. Fluids, electrolytes, and nutrition: I will order IV fluids at a rate of 75 mL per hour. I have placed her on a regular diet. 7. Code status: The patient will be a full code. 8. DVT prophylaxis: According to the DVT Risk Assessment, the patient scores a 4 putting her at high risk. I will place her on Lovenox. TIME SPENT: Approximately 60 minutes was spent on this admission, greater than half of that time spent with the patient and her friend obtaining my history, performing my physical exam, and reviewing the plan of care. This case has been reviewed with my attending, Dr. Neves, who is in agreement with the plan of care. ANNA CLAY, RADIOGRAPHIC TECHNOLOGIST [id number]/[facility] #: [id number] ROE
[2018-02-02] MEDS: Enoxaparin(*) 40 MG/0.4 ML SYR SUBCUT SCH (22:10)
[2018-02-03 06:51] LABS: Hematocrit 38 % (35-47); Hemoglobin 12.4 g/dl (12.0-16.0); Mean Corpuscular HGB Conc 33 g/dl (31-36); Mean Corpuscular Hemoglobin 27 pg (27-31); Mean Corpuscular Volume 83 fL (80-97); Mean Platelet Volume 6.9 um3 (7.4-10.4); Platelet Count 226 10^3/ul (150-450); Red Blood Count 4.54 10^6/ul (4.00-5.40); Red Cell Distribution Width 15 % (10.5-15); White Blood Count 28.6 10^3/ul (3.5-10.8)
[2018-02-03 06:55] LABS: ABS Neutrophils 4.2 10^3/ul (1.5-7.7)
[2018-02-03 07:06] LABS: EGFR Non-African American 85.4 (>60)
[2018-02-03 07:39] LABS: ABS Basophils 0.1 10^3/ul (0-0.2); ABS Eosinophils 0.5 10^3/ul (0-0.6); ABS Lymphocytes 23.2 10^3/ul (1.0-4.8); ABS Monocytes 0.5 10^3/ul (0-0.8); ABS Nucleated RBC 0.3 10^3/ul; Eosinophil % 1.9 % (0-6); Nucleated Red Blood Cells % 1.1
[2018-02-03] MEDS: NS 0.9% 1000 ML* 1,000 ML IV SCH (08:28)
[2018-02-03] MEDS: DULoxetine DR CAP* 60 MG CAP.DR PO SCH (08:36)
[2018-02-03] MEDS: Vitamin B Complex TAB PO SCH (08:39)
[2018-02-03] MEDS: Cholecalciferol TAB* 1000 UNITS PO SCH (08:39)
[2018-02-03] MEDS ORDERED: Gadoteridol* (CONTRAST) 279.3 MG/ML 10 ML IV ONE (11:08)
--- NOTE | 2018-02-03 11:39 | RAD ---
HISTORY: progressive weakness COMPARISONS: Head CT dated February 02, 2015 TECHNIQUE: The following sequences were obtained of the head: Sagittal FLAIR images, axial T2-weighted images, axial FLAIR images, axial susceptibility weighted images, axial T1-weighted images. Additionally, axial diffusion-weighted images were obtained with calculated apparent diffusion coefficients. Additionally, sagittal, coronal, and axial T1-weighted images were obtained after contrast enhancement with a gadolinium-based intravenous contrast agent. FINDINGS: HEMORRHAGE/INFARCT: There is no hemorrhage or acute infarct. MASSES/SHIFT: There is no mass or shift. EXTRA-AXIAL SPACES/MENINGES: There are no extra-axial fluid collections. SULCI AND VENTRICLES: The sulci and ventricles are normal in size and position for the patient's stated age. CEREBRUM: There are no focal parenchymal abnormalities. BRAINSTEM: There are no focal parenchymal abnormalities. CEREBELLUM: There are no focal parenchymal abnormalities. The cerebellar tonsils are normal in size and position. SELLA: The sella is normal. PINEAL: The pineal region is clear. CP ANGLE/TEMPORAL BONES: The labyrinthine structures are grossly normal. VESSELS: Normal flow-voids are noted within the visualized vertebral vasculature. DIFFUSION ABNORMALITIES: There are no diffusion abnormalities. PARANASAL SINUSES/MASTOIDS: The paranasal sinuses are clear. ORBITS: The orbits are unremarkable. BONES AND SOFT TISSUE: No bone or soft tissue abnormalities are noted. OTHER: Small intraparotid and upper cervical lymph nodes are noted. There is no lymphadenopathy by size criteria within the visualized [id number]. IMPRESSION: UNREMARKABLE MRI OF THE BRAIN. NO ABNORMAL ENHANCEMENT.
--- NOTE | 2018-02-03 12:02 | RAD ---
HISTORY: Hyperreflexia, subjective weakness, history of chronic lymphocytic leukemia COMPARISONS: CT of the neck dated July 12, 2010 TECHNIQUE: The following sequences were obtained of the cervical spine: Sagittal and axial T1- and T2-weighted images, sagittal STIR images, and axial gradient echo images. Additionally, axial and sagittal T1 weighted images were obtained after contrast enhancement with a gadolinium-based intravenous contrast agent.. FINDINGS: BRAIN AND SPINAL CORD: The visualized spinal cord is normal in caliber, position, and signal intensity. The visualized portion of the brain is unremarkable. The cerebellar tonsils are normal in position. ALIGNMENT: There is straightening of the normal cervical lordosis. The alignment is otherwise normal. VERTEBRAL BODIES: There is multilevel anterolateral marginal osteophyte formation. JOINTS: There is diffuse uncovertebral and facet osteoarthritis. MUSCULATURE: Unremarkable. INTERVERTEBRAL DISCS: There is diffuse loss of intervertebral disc height and T2 signal throughout the spine. AXIAL IMAGES: C2-C3: There is no disc herniation, spinal stenosis, or neuroforaminal narrowing. C3-C4: There is no disc herniation, spinal stenosis, or neuroforaminal narrowing. C4-C5: There is a broad-based disc osteophyte complex. There is no significant neural foraminal area or central canal stenosis. C5-C6: There is a broad-based disc osteophyte complex with bilateral uncovertebral hypertrophy. There is moderate bilateral neuroforaminal narrowing. There is mild narrowing of central canal. C6-C7: There is a broad-based disc osteophyte complex with bilateral uncovertebral hypertrophy. There is moderate bilateral neuroforaminal narrowing. There is mild narrowing of the central canal. C7-T1: There is no disc herniation, spinal stenosis, or neuroforaminal narrowing. SOFT TISSUES: There are upper cervical lymph nodes bilaterally measuring up to 1.5 cm in short axis. There is a left supraclavicular lymph node measuring up to 0.9 cm in short axis. These are similar to the July 12, 2010 CT examination.. OTHER: There is no abnormal enhancement. IMPRESSION: 1. UPPER CERVICAL LYMPHADENOPATHY. 2. DEGENERATIVE DISC DISEASE AND OSTEOARTHRITIS. 3. THERE IS MILD NARROWING OF CENTRAL CANAL AT C5-C6 AND C6-C7. 4. THERE IS MULTILEVEL NEUROFORAMINAL NARROWING DESCRIBED ABOVE.
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
[2018-02-03] MEDS: Enoxaparin(*) 40 MG/0.4 ML SYR SUBCUT SCH (18:50)
[2018-02-03] MEDS: Melatonin 3 MG TAB PO PRN (20:59)
[2018-02-04] MEDS ORDERED: hydrALAZINE IV* 20 MG/ML VIAL IV SLOW PU ONE (01:10)
[2018-02-04] MEDS: Acetaminophen TAB* 325 MG PO PRN ×2 (03:56→14:02)
[2018-02-04] MEDS ORDERED: ALPRAZolam TAB* 0.25 MG PO ONE (04:09)
[2018-02-04] MEDS ORDERED: ALPRAZolam TAB* 0.25 MG ONE (04:25)
[2018-02-04] MEDS: ALPRAZolam TAB* 0.25 MG PO PRN ×3 (04:27→21:45)
[2018-02-04] MEDS: Vitamin B Complex TAB PO SCH (08:09)
[2018-02-04] MEDS: Cholecalciferol TAB* 1000 UNITS PO SCH (08:09)
[2018-02-04] MEDS: DULoxetine DR CAP* 60 MG CAP.DR PO SCH (08:09)
--- NOTE | 2018-02-04 08:14 | RAD ---
Indication: Chest pain. Weakness. Comparison: February 02, 2018 Technique: Upright AP 0330 hours Report: Obese body habitus limits image quality. Accounting for superimposed soft tissues and suboptimal inspiration with minimal atelectasis the lungs and pleural spaces are clear. Negative for pneumothorax. The heart, pulmonary vasculature, and mediastinal contours are unremarkable. IMPRESSION: #. No evidence for acute intrathoracic disease. R1NF
--- NOTE | 2018-02-04 09:39 | PN ---
Progress Note - Progress Note Date of Service: 02/04/18 SOAP: Subjective: very weak today. feels unable to care for self. currently somewhat sedated after receiving 2 doses of xanax. she denies being anxious. she states "i find it impossible that this is all psychiatric". Objective: Vital Signs Temp Pulse Resp BP Pulse Ox 98.3 F 73 16 144/83 98 02/04/18 07:49 02/04/18 07:49 02/04/18 08:00 02/04/18 07:49 02/04/18 07:49 flat affect, sedated generalized weakness, without clear focal neurological finding thick neck CTA bl s1 s2 nl obese nt +bs no le edema A+O x 3 Laboratory Results - last 24 hr 02/02/18 02/02/18 02/04/18 14:12 14:12 04:11 Hem Pathologist Commnt Sodium 137 Potassium 4.2 Chloride 102 Carbon Dioxide 31 Anion Gap 4 BUN 14 Creatinine 0.77 Est GFR ( Amer) 95.6 Est GFR (Non-Af Amer) 79.0 BUN/Creatinine Ratio 18.2 Glucose 102 H Calcium 9.9 Phosphorus 3.0 Magnesium 2.1 Total Bilirubin 1.10 H AST 19 ALT 18 Alkaline Phosphatase 60 Total Creatine Kinase 55 Troponin I 0.00 0.00 C-Reactive Protein 4.92 Total Protein 7.0 Albumin 4.0 Globulin 3.0 Albumin/Globulin Ratio 1.3 TSH 2.36 Free T3 3.50 Thyroid Peroxidase Ab 0.45 02/04/18 06:10 Hem Pathologist Commnt Sodium Potassium Chloride Carbon Dioxide Anion Gap BUN Creatinine Est GFR ( Amer) Est GFR (Non-Af Amer) BUN/Creatinine Ratio Glucose Calcium Phosphorus Magnesium Total Bilirubin AST ALT Alkaline Phosphatase Total Creatine Kinase Troponin I 0.00 C-Reactive Protein Total Protein Albumin Globulin Albumin/Globulin Ratio TSH Free T3 Thyroid Peroxidase Ab Assessment: 52 yo F w stage I CLL presenting with a progressive functional decline of unclear etiology. She has no clear organic etiology to her illness, and neurology is questioning conversion disorder. She will get an LP under radiology guidance (to limit contamination) to rule out CLL in FL[employer] (very unlikely). Paraneoplastic panel was negative. Assuming this work up is all negative, the next step is unclear. This would be very unlikely to be from her CLL. I did refer her to [facility], who agrees with this. That being said, if no other etiology is found it is reasonable to try to treat the CLL and see if she improves. I did mention to Bobbi that I would like to have her seen by psychiatry first to weigh in on the possibility of a conversion disorder. She is open to this consultation.
[2018-02-04] MEDS ORDERED: Morphine VIAL* 4 MG/ML VIAL (1 ml vial) IV ONE ×3 (09:49→11:00)
[2018-02-04] MEDS ORDERED: Lidocaine 1% INJ* 10 MG/ML 30 ML SDV ONE (10:02)
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
[2018-02-04] MEDS ORDERED: Lidocaine 1%* 5 ML VIAL ONE (12:59)
[2018-02-04] MEDS ORDERED: Midazolam* 1 MG/ML 5 ML VIAL (5 MG) ONE (13:09)
[2018-02-04] MEDS ORDERED: Morphine VIAL* 10 MG/ML 1 ML VIAL ONE (13:32)
[2018-02-04 13:54] LABS: Body Fluid Source Cerebral Spinal
--- NOTE | 2018-02-04 15:26 | CONSULT ---
Consult Consult: Psychiatry met with Ms. Slater for approximately half an hour today. I would like to meet with her further, and also speak with her outpatient therapist, Inga Calvillo ([phone]), before rendering any opinions. Psychiatry will follow up with her around noon tomorrow and document my findings and recommendations at that time. Thank you for the consult.
[2018-02-04] MEDS: Melatonin 3 MG TAB PO PRN (21:45)
[2018-02-05] MEDS: Cholecalciferol TAB* 1000 UNITS PO SCH (08:12)
[2018-02-05] MEDS: DULoxetine DR CAP* 60 MG CAP.DR PO SCH (08:13)
[2018-02-05] MEDS: Vitamin B Complex TAB PO SCH (08:13)
--- NOTE | 2018-02-05 08:35 | PM ---
CC: Dr. Man; Dr. Palacios * [facility] NOTE: DATE OF PROCEDURE: 02/04/18 CHIEF COMPLAINT: Weakness and fatigue. HISTORY: The patient is a 52-year-old female who is an inpatient at [facility]. She is presently being worked up for weakness and fatigue with a history as well of CLL. As part of that workup, they had requested a lumbar puncture which the neurologist Dr. Palacios attempted this morning; however, he was unsuccessful. Her last dose of Lovenox was last evening at 1830 and he asked me to attempt a lumbar puncture on the patient today. I reviewed the patient's laboratory analysis and medications listed. No contraindications to proceeding. I talked to the patient about the lumbar puncture and she requested some medications to calm her down as she is quite anxious especially after the failed attempt this morning. After discussing the procedure, the risks , the benefits, alternatives, informed consent was obtained. PROCEDURE NOTE: The patient was placed in sitting position, placed on monitors and 2 L of oxygen via nasal cannula. She was given a total of 2 mg of midazolam for anxiolysis. Her back was prepped and draped in usual sterile fashion. Using 3 cc of 1% lidocaine, I anesthetized the interspinous space at L3-4. I then passed a 20- gauge introducer into the interspinous space. I then used a 25-gauge Pencan needle and passed it through the introducer into the subarachnoid space. There was free flow of clear cerebral spinal fluid. There were no paraesthesias or blood noted. I proceeded to collect 4 vials of clear cerebrospinal fluid which will be sent to laboratory for analysis per Dr. Palacios's orders. The patient tolerated the procedure well and will be returned to her room shortly. [id number]/[facility] #: [id number] [facility]
[2018-02-05] MEDS ORDERED: Docusate CAP* 100 MG PO SCH (09:00)
--- NOTE | 2018-02-05 09:58 | PN ---
Progress Note - Progress Note Date of Service: 02/05/18 SOAP: Subjective: [] Clear cognition today and discussed progressive symptoms. Continued weakness , low mobility. Rash is mild today. Acetaminophen (Tylenol Tab*) 650 mg PO Q4H PRN PRN Reason: FEVER/PAIN Last Admin: 02/04/18 14:02 Dose: 650 mg Al Hydrox/Mg Hydrox/Simethicone (Maalox Plus*) 30 ml PO Q6H PRN PRN Reason: INDIGESTION Alprazolam (Xanax Tab*) 0.25 mg PO TID PRN PRN Reason: AGITATION/ANXIETY Last Admin: 02/04/18 21:45 Dose: 0.25 mg Cholecalciferol (Vitamin D Tab*) 5,000 units PO DAILY [facility] Last Admin: 02/05/18 08:12 Dose: 5,000 units Docusate Sodium (Colace Cap*) 100 mg PO BID [facility] Last Admin: 02/05/18 08:13 Dose: 100 mg Duloxetine HCl (Cymbalta Cap*) 60 mg PO DAILY [facility] Last Admin: 02/05/18 08:13 Dose: 60 mg Melatonin (Melatonin) 3 mg PO 2100 PRN PRN Reason: INSOMNIA Last Admin: 02/04/18 21:45 Dose: 3 mg Ondansetron HCl (Zofran Inj*) 4 mg IV Q4H PRN PRN Reason: NAUSEA/VOMITING Vitamin B Complex/Vitamin E (B Complex-50*) 1 tab PO DAILY [facility] Last Admin: 02/05/18 08:13 Dose: 1 tab Objective: [] Vital Signs Temp Pulse Resp BP Pulse Ox 97.6 F 80 18 142/83 96 02/05/18 08:08 02/05/18 08:08 02/05/18 08:24 02/05/18 08:08 02/05/18 08:08 HEENT: mucosa moist, no lesions CTA RRR S1S2 Obese 4 cm rash right groin. Extensive imaging and serologic studies reviewed. In Summary: imaging with no objective evidence of CLL or structural neuralgic disease. There is question of raised hemidaphram on CT, unclear significance. para-neoplastic panel pending, other immune studies negative. LP benign appearing. 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 No objective progression of disease but recently with progressive rash, fatigue and now neurologic syndrome of unclear etiology. Extensive discussion, main points: - Do not take offence to conversion disorder, would be a good solution to current problems. Work with psychiatry. - This is not likely from CLL. If CLL is causing symptoms it has to be through auto-immune process, would be nice to have serologic proof. - May be reasonable to try treating CLL with regimen that does not cause fatigue or little fatigue. Could use newer single agent monoclonal antibody if insurance will agree. If we treat CLL would not re-consult [facility] since decision made on clinical basis. Plan: []1. Evaluation conversion disorder. 2. Will discuss with Dr. Man. time with patient and chart 9:15 - 10:00 am
[2018-02-05 12:40] VITALS: BP 131/69
--- NOTE | 2018-02-05 14:04 | PN ---
Subjective Date of Service: 02/05/18 Length of Stay: 3 Days Neurology is following Ms. Slater for the evaluation and management of fatigue. Interval History: She continues to report subjective weakness and fatigue. She walked with me today. She informed me that it was the most she "has ever walked since the last 4-5 days." She denied any headache, visual disturbance or paresthesias. Review of Systems: Denied CP, SOB, or palpitations. Objective Active Medications: Acetaminophen (Tylenol Tab*) 650 mg PO Q4H PRN PRN Reason: FEVER/PAIN Last Admin: 02/04/18 14:02 Dose: 650 mg Al Hydrox/Mg Hydrox/Simethicone (Maalox Plus*) 30 ml PO Q6H PRN PRN Reason: INDIGESTION Alprazolam (Xanax Tab*) 0.25 mg PO TID PRN PRN Reason: AGITATION/ANXIETY Last Admin: 02/04/18 21:45 Dose: 0.25 mg Cholecalciferol (Vitamin D Tab*) 5,000 units PO DAILY [facility] Last Admin: 02/05/18 08:12 Dose: 5,000 units Docusate Sodium (Colace Cap*) 100 mg PO BID [facility] Last Admin: 02/05/18 08:13 Dose: 100 mg Duloxetine HCl (Cymbalta Cap*) 60 mg PO DAILY [facility] Last Admin: 02/05/18 08:13 Dose: 60 mg Melatonin (Melatonin) 3 mg PO 2100 PRN PRN Reason: INSOMNIA Last Admin: 02/04/18 21:45 Dose: 3 mg Ondansetron HCl (Zofran Inj*) 4 mg IV Q4H PRN PRN Reason: NAUSEA/VOMITING Vitamin B Complex/Vitamin E (B Complex-50*) 1 tab PO DAILY [facility] Last Admin: 02/05/18 08:13 Dose: 1 tab Vital Signs 02/04/18 02/04/18 02/04/18 15:52 16:02 20:00 Temperature 97.5 F Pulse Rate 83 Respiratory 24 20 18 Rate Blood Pressure 142/79 (mmHg) O2 Sat by Pulse 96 Oximetry 02/04/18 02/04/18 02/04/18 20:08 21:45 23:30 Temperature 97.7 F 97.5 F Pulse Rate 88 84 Respiratory 24 18 16 Rate Blood Pressure 153/85 146/88 (mmHg) O2 Sat by Pulse 95 98 Oximetry 02/05/18 02/05/18 02/05/18 01:15 02:45 07:58 Temperature 97.3 F Pulse Rate 74 84 Respiratory 18 20 Rate Blood Pressure 131/72 136/72 (mmHg) O2 Sat by Pulse 95 Oximetry 02/05/18 02/05/18 02/05/18 08:08 08:24 11:52 Temperature 97.6 F 98.1 F Pulse Rate 80 72 Respiratory 18 18 16 Rate Blood Pressure 142/83 131/69 (mmHg) O2 Sat by Pulse 96 98 Oximetry Intake and Output Last 24 Hours 02/03/18 02/04/18 02/05/18 02/06/18 06:59 06:59 06:59 06:59 Intake Total 1720 2115 1420 360 Output Total 410 Balance 1720 2115 1010 360 Weight 236 lb 8 oz 236 lb 8 oz Intake: IV Fluids 1000 980 10 NS (0.9%) 10 Oral 720 1135 1410 360 Output: Urine 410 Other: Estimated Void Large Medium Large # Bowel Movements 0 0 Estimated Stool Amount Small # Voids 1 1 2 1 Oxygen Devices in Use Now: BiPAP Neurology Exam: General: well nourished, well developed. Alert, cooperative, no apparent distress, appears stated age. Head: normocephalic, without obvious abnormality. Eyes: conjunctivae/corneas clear Neck: supple, symmetrical. No carotid bruit. There is diffuse cervical lymphadenopathy. Extremities: normal range of motion with no cyanosis. Skin: no skin lesions or lacerations Psych: affect-broad and normal mood. Easy to establish rapport. She jokes around with the examiner during the lumbar puncture procedure. Neurological examination: Mental status: awake; alert and oriented to person, place, time, & general circumstances; speech & language including expression, naming, repetition, & comprehension was assessed and found to be normal. Cranial nerves: PERRL, EOM-I, no facial asymmetry. Motor (R/L): no abnormal movements, no pronator drift. Normal bulk and tone throughout. No fasciculations. Neck extension 5. Shoulder ROM is full. Shoulder abduction 5/5. Elbow flexion 5/5, extension 5/5. Wrist flexion 5/5, extension 5/5. Finger flexion 4/4, and abduction 4/4 (give-way activation). Hip flexion 5/5, abduction 5/5. Knee flexion 5/5, extension 5/5. Ankle dorsiflexion 5/5, plantarflexion 5/5. s Reflexes s R s L w Brachioradialis w 2+ w 2+ w Biceps w 2+ w 2+ w Triceps w 2+ w 2+ w Patella w 2+ w 2+ w Ankle w 2+ w 2+ w Plantar w flexor w flexor Arnaud's weak positive on the left. Sensation is intact to light touch throughout. Vibration: 12 seconds on the right and 13 seconds on the left toes. Normal proprioception. Coordination: normal finger to nose and rapid alternating movements. Gait & Station: wide based required one person assist but did not use a walker. Result Diagrams: 02/03/18 06:35 02/03/18 06:35 Additional Lab and Data: Lab Results 02/02/18 02/02/18 02/02/18 Range/Units 14:12 14:12 14:12 WBC 32.3 H (3.5-10.8) 10^3/ul RBC 4.80 (4.00-5.40) 10^6/ul Hgb 13.2 (12.0-16.0) g/dl Hct 40 (35-47) % MCV 83 (80-97) fL MCH 28 (27-31) pg MCHC 33 (31-36) g/dl RDW 15 (10.5-15) % Plt Count 285 (150-450) 10^3/ul MPV 6.9 L (7.4-10.4) um3 Neut % (Auto) Pending Lymph % (Auto) Pending Nuckolls % (Auto) Pending Eos % (Auto) Pending Baso % (Auto) Pending Absolute Neuts (auto) Pending Absolute Lymphs (auto) Pending Absolute Monos (auto) Pending Absolute Eos (auto) Pending Absolute Basos (auto) Pending Absolute Nucleated RBC Pending Nucleated RBC % Pending INR (Anticoag Therapy) 0.98 (0.77-1.02) Sodium 137 (135-145) mmol/L Potassium 4.2 (3.5-5.0) mmol/L Chloride 102 (101-111) mmol/L Carbon Dioxide 31 (22-32) mmol/L Anion Gap 4 (2-11) mmol/L BUN 14 (6-24) mg/dL Creatinine 0.77 (0.51-0.95) mg/dL Est GFR ( Amer) 95.6 (>60) Est GFR (Non-Af Amer) 79.0 (>60) BUN/Creatinine Ratio 18.2 (8-20) Glucose 102 H (70-100) mg/dL Lactic Acid (0.5-2.0) mmol/L Calcium 9.9 (8.6-10.3) mg/dL Phosphorus 3.0 (2.5-5.0) mg/dL Magnesium 2.1 (1.9-2.7) mg/dL Total Bilirubin 1.10 H (0.2-1.0) mg/dL AST 19 (13-39) U/L ALT 18 (7-52) U/L Alkaline Phosphatase 60 (34-104) U/L Total Creatine Kinase 55 (10-223) U/L Troponin I 0.00 (<0.04) ng/mL C-Reactive Protein 4.92 (<8.01) mg/L Total Protein 7.0 (6.4-8.9) g/dL Albumin 4.0 (3.2-5.2) g/dL Globulin 3.0 (2-4) g/dL Albumin/Globulin Ratio 1.3 (1-3) TSH Pending 02/02/18 Range/Units 14:12 WBC (3.5-10.8) 10^3/ul RBC (4.00-5.40) 10^6/ul Hgb (12.0-16.0) g/dl Hct (35-47) % MCV (80-97) fL MCH (27-31) pg MCHC (31-36) g/dl RDW (10.5-15) % Plt Count (150-450) 10^3/ul MPV (7.4-10.4) um3 Neut % (Auto) Lymph % (Auto) Nuckolls % (Auto) Eos % (Auto) Baso % (Auto) Absolute Neuts (auto) Absolute Lymphs (auto) Absolute Monos (auto) Absolute Eos (auto) Absolute Basos (auto) Absolute Nucleated RBC Nucleated RBC % INR (Anticoag Therapy) (0.77-1.02) Sodium (135-145) mmol/L Potassium (3.5-5.0) mmol/L Chloride (101-111) mmol/L Carbon Dioxide (22-32) mmol/L Anion Gap (2-11) mmol/L BUN (6-24) mg/dL Creatinine (0.51-0.95) mg/dL Est GFR ( Amer) (>60) Est GFR (Non-Af Amer) (>60) BUN/Creatinine Ratio (8-20) Glucose (70-100) mg/dL Lactic Acid 1.0 (0.5-2.0) mmol/L Calcium (8.6-10.3) mg/dL Phosphorus (2.5-5.0) mg/dL Magnesium (1.9-2.7) mg/dL Total Bilirubin (0.2-1.0) mg/dL AST (13-39) U/L ALT (7-52) U/L Alkaline Phosphatase (34-104) U/L Total Creatine Kinase (10-223) U/L Troponin I (<0.04) ng/mL C-Reactive Protein (<8.01) mg/L Total Protein (6.4-8.9) g/dL Albumin (3.2-5.2) g/dL Globulin (2-4) g/dL Albumin/Globulin Ratio (1-3) TSH Reviewing the records from the outside facility: 01/22/2018: TSH: 3.50 CRP: 4.92 Cortisol 5.4 (collected at 1637) B12: 754 EBV DNA: not detected. Ach Binding AB: 0 Amphiphysin AB: negative MARKUS 1,2,3,4: negative CRMP- IgG Ab: negative Striational Ab, S: negative CK: 42 CSF analysis: glucose: 70 Protein: 28 Cell count 4 WBC: 1 RBC 0 Microbiology and Other Data: Microbiology 02/02/18 14:12 Aerobic Blood Culture - Preliminary Blood Venous No Growth Day 1 Anaerobic Blood Culture - Preliminary No Growth Day 1 02/02/18 14:12 Aerobic Blood Culture - Preliminary Blood Venous No Growth Day 1 Anaerobic Blood Culture - Preliminary No Growth Day 1 Diagnostic Imaging: MRI brain with contrast- Unremarkable MRI of the brain. No abnormal enhancement. MRI cervical spine with contrast: cervical lymphadenopathy. DDD with mild narrowing of central canal at C5-6 and C6-7. Multilevel neuroforaminal narrowing. Nerve conduction study of the left lower extremity- normal study. There is no evidence of large fiber polyneuropathy. Assessment/Plan Ms. Slater is a pleasant 52-year-old female with history of CLL who has progressive fatigue over the last four months. Please see my previous note for detailed evaluation. At this time, it is very reasonable to send her to rehabilitation to improve her confidence and energy. She may benefit from cognitive behavioral therapy. Pending Dr. Powers's evaluation. Pending acceptance in PMU, hopefully. If not she needs help at home until her symptoms improve. If symptoms do not improve, then as Dr. Ferrara recommended, treating the CLL is an option but the last reserve. She was mad earlier about the possibility that she may have a psychological problem causing her fatigue. I reassured and educated her regarding the diagnosis of conversion disorder. Although it is a diagnosis of exclusion, and in the setting of CLL and the extensive rash, it is hard to conclude that her symptoms are all due to conversion reaction; this is a treated condition and with time she should get better. Otherwise, I will sign off. Please contact me for any questions or concerns.
[2018-02-05 16:15] LABS: CSF VDRL Negative (Negative)
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
== END 2018-02-05 14:17 | DRG 850 ==
LOC: ED 13:36 → MED 18:49 → INTOOBSV 18:49 → OBSVTOIN 18:49
PROVIDERS: ADMIT Internal Medicine; ATTEND Internal Medicine Geriatric Medicine
PROC: 4A10X4Z Monitoring of Central Nervous Electrical Activity, External Approach (ICD-10-PCS; principal; 2018-02-04)
PROC: 00JU3ZZ Inspection of Spinal Canal, Percutaneous Approach (ICD-10-PCS; 2018-02-04)
PROC: 009U3ZX Drainage of Spinal Canal, Percutaneous Approach, Diagnostic (ICD-10-PCS; 2018-02-04)
DX: R53.1 Weakness (principal); C91.10 Chronic lymphocytic leukemia of B-cell type not having achieved remission; I10 Essential (primary) hypertension; R53.82 Chronic fatigue, unspecified; G47.33 Obstructive sleep apnea (adult) (pediatric); E66.9 Obesity, unspecified; E78.5 Hyperlipidemia, unspecified; F41.1 Generalized anxiety disorder; Z53.09 Procedure and treatment not carried out because of other contraindication; F32.9 Major depressive disorder, single episode, unspecified; R21 Rash and other nonspecific skin eruption; Z91.81 History of falling; Z81.8 Family history of other mental and behavioral disorders; Z88.8 Allergy status to other drugs, medicaments and biological substances; Z91.013 Allergy to seafood; Z82.49 Family history of ischemic heart disease and other diseases of the circulatory system; Z72.89 Other problems related to lifestyle; Z87.442 Personal history of urinary calculi; Z68.39 Body mass index [BMI] 39.0-39.9, adult
CPT/HCPCS: 36415; 70450; 70553; 71045; 72156; 80048; 80053; 81003; 82550; 82945; 83516; 83605; 83735; 83880; 84100; 84157; 84443; 84481; 84484; 85025; 85060; 85610; 86140; 86376; 86592; 86618; 86788; 86789; 86800; 87040; 87070; 87205; 88112; 88184; 88187; 88188; 88189; 89051; 93005; 96361; 96374; 99233; 99283; A9270-GY; A9579; J0360; J1650; J2250; J2270; J2405

== ENCOUNTER 2018-02-05 13:36 | Inpatient (IN) | payer BC ==
[2018-02-05] MEDS ORDERED: Al Hydrox/Mg Hydrox/Simet LIQ* 30 ML UDC PO PRN (13:44)
[2018-02-05] MEDS ORDERED: Senna TAB PO PRN (13:44)
[2018-02-05] MEDS ORDERED: Bisacodyl SUPP* 10 MG SUPP PR PRN (13:44)
[2018-02-05] MEDS ORDERED: Ondansetron ODT TAB* 4 MG SL PRN (13:53)
[2018-02-05] MEDS: Heparin VIAL(*) 5000 UNITS/ML VIAL (FIVE THOUSAND) SUBCUT SCH ×2 (15:37→22:13)
--- NOTE | 2018-02-05 20:02 | HP ---
CC: Dr. Dalia Hill; Dr. Man; Dr. Krueger. REHABILITATION ADMISSION: DATE OF ADMISSION: 02/05/18 PRIMARY CARE PROVIDER: Dalia Hill MD ONCOLOGIST: Dr. Man. NEUROLOGY: Dr. Krueger. REASON FOR ADMISSION: Weakness with CLL. HISTORY OF PRESENT ILLNESS: This is a 52-year-old woman with CLL who has been followed by Dr. Man and [facility] who reports since October slowly having increasing fatigue and weakness. It seemed to accelerate in the 3 weeks prior to admission and much more drastically in 3 days prior to admission so much so that she obtained a walker to help her ambulate. On the day of admission, she felt that she was so weak that she could not even use the walker because her arms were so weak. She came to the emergency room. CT of the head was negative. She was seen by Neurology, Dr. Palacios. Her workup has included MRI of the brain and cervical spine, EMG of the left leg, and lumbar puncture without any new neurological diagnosis to explain her generalized fatigue and weakness. She has also had several lab studies. She has been seen by Dr. Man as well as Dr. Ferrara on the oncology service. Because of her anxiety and depression, Psychiatry was also consulted. She believes that Dr. Powers is recommending increasing her duloxetine and ongoing follow up with a therapist after discharge. During her admission, she did have an episode of hypertension as well as chest pain after receiving hydralazine. Her cardiac workup was negative and her troponins remained 0. Prior to admission, she was independent with all mobility and activities of daily living and just recently using a walker. With physical therapy here, she has required supervision for bed mobility and transfers but when she is fatigued, she requires more assistance up to contact guard with transferring. She can ambulate with contact guard assist only 20 feet with a rolling walker and once again she gets worse with fatigue. With occupational therapy, she has required contact guard assist for toilet transfer and a minimum assistance for toileting. PAST MEDICAL HISTORY: 1. Chronic Lymphocytic Leukemia. 2. Hypertension. 3. Obstructive sleep apnea, on BiPAP. 4. Depression. 5. Anxiety. 6. Obesity. MEDICATIONS: Currently, 1. Xanax 0.25 mg t.i.d. p.r.n. 2. Vitamin D 5000 units daily. 3. Duloxetine currently 60 mg daily, possibly going to be increased. 4. Tylenol 650 mg q.4 hours p.r.n. pain. 5. Maalox p.r.n. 6. Colace 100 mg b.i.d. 7. Melatonin 3 mg q.h.s. 8. Zofran p.r.n. 9. Vitamin B complex. ALLERGIES: LISINOPRIL, VALSARTAN, STEROIDS, EGGPLANT, and LOBSTER. SOCIAL HISTORY: She lives alone. She has a son, Eric, who is in college. He is her healthcare proxy if she cannot made decisions for herself. She also identifies a few friends including Nona Babin, who could help make decisions. 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 She been out of work for more than 3 weeks now. Her home is 1 level, there are 7 steps to enter. She normally cycles on a regular basis and this is the first year she has not done the ride around [facility]. She also enjoys swing dancing and [employer] artistry. FAMILY HISTORY: Mother, Lewy body dementia and hypertension. Father, hypertension. REVIEW OF SYSTEMS: See history of present illness and past medical history. The remainder of 13 systems review was completed. Over the last several months , she has had a migrating rash as well that has been itchy without any clear etiology. She was seen my dermatology as an outpatient. It has not responded to topical or oral steroids. Benadryl is also not very helpful. PHYSICAL EXAMINATION VITAL SIGNS: Temperature 98.1, heart rate 72, blood pressure 131/69, respiration rate 16, oxygenation 98% on room air. GENERAL: Well developed, well nourished, appearing stated age. Mental status: in no acute distress. Alert and oriented x3. HEENT: Normocephalic, atraumatic. Oropharynx is clear. Moist mucous membranes. LUNGS: Clear to auscultation bilaterally. HEART: Regular rate and rhythm. ABDOMEN: Active bowel sounds. Soft, nontender, nondistended. EXTREMITIES: No clubbing, cyanosis, or edema. MUSCULOSKELETAL EXAM: She has functional range of motion of all of her major joints. NEUROLOGICAL EXAM: Cranial nerves II through XII are intact. She has 5/5 strength in bilateral upper and lower extremities with normal sensation. SKIN: She has a patch of erythema in her left upper thigh that is itchy and another small patch on the back of her neck with small papules. LABORATORY DATA: Labs on 02/03/18, white blood cells 28.6, hemoglobin 12.4, platelets 226. She had a normal basic metabolic panel. Cerebrospinal fluid was within normal limits with upper range of normal glucose of 70. Pending is tissue transglutaminase IgA as well as Dr. Hill has ordered a 24-hour urine heavy metal screen, which has been received. There are also pending CSF cultures. IMPRESSION: A 52-year-old woman with CLL and fatigue and diffuse weakness, who will be admitted to [facility], so she can return to living independently. She has been showing improvement since admission and no specific etiology has been found other than her CLL. PLAN: 1. CLL: Oncology followup. 2. Fatigue and weakness: Follow up on test results and with Neurology as needed. 3. DVT prophylaxis: Subcutaneous heparin. 4. Anxiety and depression: I have a call in to Dr. Powers to discuss her Cymbalta dosing. Continue Psychiatry and psychologist follow up. 5. Impaired mobility: She will be seen by Physical Therapy for bed mobility, transfer, gait and stair training using the least restrictive assistive device. 6. Impaired self-care: She will be seen by Occupational Therapy for ADL training and equipment evaluation. 8. Advance directives: She is a full code. ESTIMATED LENGTH OF STAY: 5 to 7 days. [id number]/[facility] #: [id number] MTDD
[2018-02-05] MEDS: Docusate CAP* 100 MG PO SCH (21:23)
[2018-02-05] MEDS: Melatonin 3 MG TAB PO SCH (21:23)
[2018-02-06] MEDS: Heparin VIAL(*) 5000 UNITS/ML VIAL (FIVE THOUSAND) SUBCUT SCH ×3 (05:59→21:05)
[2018-02-06 07:00] LABS: Hematocrit 37 % (35-47); Hemoglobin 12.3 g/dl (12.0-16.0); Mean Corpuscular HGB Conc 33 g/dl (31-36); Mean Corpuscular Hemoglobin 27 pg (27-31); Mean Corpuscular Volume 83 fL (80-97); Mean Platelet Volume 6.9 fL (7.4-10.4); Platelet Count 225 10^3/ul (150-450); Red Blood Count 4.49 10^6/ul (4.00-5.40); Red Cell Distribution Width 15 % (10.5-15); White Blood Count 28.1 10^3/ul (3.5-10.8)
[2018-02-06 07:14] LABS: EGFR Non-African American 91.2 (>60)
[2018-02-06 07:44] LABS: ABS Basophils 0.1 10^3/ul (0-0.2); ABS Eosinophils 0.3 10^3/ul (0-0.6); ABS Lymphocytes 22.2 10^3/ul (1.0-4.8); ABS Monocytes 0.6 10^3/ul (0-0.8); ABS Neutrophils 4.9 10^3/ul (1.5-7.7); ABS Nucleated RBC 0.2 10^3/ul; Eosinophil % 1.2 % (0-6); Lymphocyte % 78.9 % (25-47); Nucleated Red Blood Cells % 0.6
--- NOTE | 2018-02-06 08:56 | PN ---
Progress Note Date of Service: 02/06/18 Note: LYNDA FRANCOIS was visited. Nursing notes read and reviewed. Therapy evaluations in progress. She slept well last night. No new chest pain, shortness of breath or abdominal pain. She has chronically had some anterior neck and left chest pain since before admission and cardiac w/u was negative in hospital. Current Medications: Active Medications Generic Name Dose Route Start Last Admin Trade Name Freq PRN Reason Stop Dose Admin Acetaminophen 650 mg 02/05/18 13:44 Tylenol Tab* PO Q4H PRN FEVER > 101 Al Hydrox/Mg Hydrox/Simethicone 30 ml 02/05/18 13:44 Maalox Plus* PO Q6H PRN INDIGESTION Alprazolam 0.25 mg 02/05/18 13:52 Xanax Tab* PO TID PRN anxiety, insomnia Bisacodyl 10 mg 02/05/18 13:44 Dulcolax Supp* RI DAILY PRN CONSTIPATION Cholecalciferol 5,000 units 02/06/18 09:00 Vitamin D Tab* PO DAILY EDUARD Docusate Sodium 100 mg 02/05/18 21:00 02/05/18 21:23 Colace Cap* PO 100 mg BID EDUARD Administration Duloxetine HCl 90 mg 02/06/18 09:00 Cymbalta Cap* PO DAILY EDUARD Heparin Sodium (Porcine) 5,000 units 02/05/18 14:00 02/06/18 05:59 Heparin Vial(*) SUBCUT 5,000 units Q8HR EDUARD Administration Melatonin 3 mg 02/05/18 21:00 02/05/18 21:23 Melatonin PO 3 mg BEDTIME EDUARD Administration Protocol Ondansetron HCl 4 mg 02/05/18 13:53 Zofran Odt Tab* SL Q6H PRN NAUSEA/VOMITING Senna 2 tab 02/05/18 13:44 Senokot Tab* PO BEDTIME PRN CONSTIPATION Vitamin B Complex/Vitamin E 1 tab 02/06/18 09:00 B Complex-50* PO DAILY EDUARD Vital Signs: Vital Signs Temp Pulse Resp BP Pulse Ox 97.8 F 85 24 152/86 94 02/06/18 05:56 02/06/18 05:56 02/06/18 08:00 02/06/18 05:56 02/06/18 08:00 Lab Results: Laboratory Results - last 24 hr 02/06/18 02/06/18 06:41 06:41 WBC 28.1 H RBC 4.49 Hgb 12.3 Hct 37 MCV 83 MCH 27 MCHC 33 RDW 15 Plt Count 225 MPV 6.9 L Neut % (Auto) 17.3 L Lymph % (Auto) 78.9 H [place] % (Auto) 2.1 Eos % (Auto) 1.2 Baso % (Auto) 0.5 Absolute Neuts (auto) 4.9 Absolute Lymphs (auto) 22.2 H Absolute Monos (auto) 0.6 Absolute Eos (auto) 0.3 Absolute Basos (auto) 0.1 Absolute Nucleated RBC 0.2 Nucleated RBC % 0.6 Sodium 135 Potassium 4.2 Chloride 105 Carbon Dioxide 25 Anion Gap 5 BUN 12 Creatinine 0.68 Est GFR ( Amer) 110.4 Est GFR (Non-Af Amer) 91.2 BUN/Creatinine Ratio 17.6 Glucose 114 H Calcium 8.8 Total Bilirubin 1.30 H AST 53 H ALT 59 H Alkaline Phosphatase 63 Total Protein 6.4 Albumin 3.8 Globulin 2.6 Albumin/Globulin Ratio 1.5 Exam: GEN: No acute distress. Alert and appropriate LUNGS: Clear to auscultation bilaterally. HEART: Regular rate and rhythm. ABDOMEN: Active bowel sounds. Soft, non-tender, non-distended. EXTREMITIES: No edema. NEURO: 5/5 strength in bilateral lower extremities with normal sensation. Assessment/Plan: 52-year-old woman with CLL and fatigue and diffuse weakness. 1. Chronic Lymphocytic Leukemia: Oncology follow up. No current treatment planned. 2. Fatigue and weakness: Neurology signed off as there does not appear to be a neurological etiology. 24hr urine for heavy metals not done on acute service and has been reordered. Will be completed tomorrow morning. PT/OT. I d/w her limiting visitations during the days she has therapies. She told friends not to visit until after 3pm during the week. 3. DVT prophylaxis: Subcutaneous heparin. 4. Anxiety and depression: Cymbalta increased to 90mg daily per Dr. Powers's recommendation. He will see her next week. She has an outpatient therapist. 5. Transaminitis and Hyperbilirubinemia: These are very mild. She has no abdominal pain. Recheck Thursday. 6. Advance directives: She is a full code. 7. Estimated LOS: IPOC today. 02/06/18 10:19
[2018-02-06] MEDS ORDERED: DULoxetine DR CAP* 60 MG CAP.DR PO SCH (09:00)
[2018-02-06] MEDS: DULoxetine DR CAP* 30 MG CAP.DR PO SCH (10:10)
[2018-02-06] MEDS: Cholecalciferol TAB* 1000 UNITS PO SCH (10:11)
[2018-02-06] MEDS: Docusate CAP* 100 MG PO SCH ×2 (10:11→21:05)
[2018-02-06] MEDS: Vitamin B Complex TAB PO SCH (10:16)
--- NOTE | 2018-02-06 10:53 | PMRUTEAM ---
PMRU: Team Meeting Current Status: Nursing: Current Status Skin Deviations [Posterior Other Neck] Skin Deviations [Lower Back] Other Skin Deviations [Left Lower Abrasion Leg] Skin Deviations [Left Groin] Rash,Other Skin Deviation Description [ small area of tiny red papules Posterior Neck] Skin Deviation Description [ lumbar puncture sites x 2 w/ tegaderm Lower Back] Skin Deviation Description [ abrasion from fall on anterior tibial area Left Lower Leg] Skin Deviation Description [ redness, pt states is itchy Left Groin] Physical Therapy: Current Status Bed Mobility Assistance supervision Transfer Moblility Assistance contact guard Ambulation Assistance contact guard Ambulation Assistive Devices Rolling Walker Stairs Assistance non tested Stairs Recommended Devices One Rail,Two Rails Number of Stairs 7 Occupational Therapy: Current Status: Independent eating, contact guard functional transfer, contact guard dressing, supervision toileting Rec Therapy: Current Status Summary of Assessment and Pt. was open to conversation - cooperative and Clinical Impression engaged throughout. Pt. identified with many interests but minimal involvement in them since October 2017 d/t her physical health. Pt. is hopeful to get back involved in them. Pt. was open to leisure involvement and activities while on the unit. Provided pt. with crossword puzzles to engage in. Treatment Goals Pt. will engage in leisure activities while on the unit. Treatment Plan Provide RT services and encourage involvement. Social Work: Current Status Discharge Plan either return to her own home or to a friends home with home care svs Potential for Family Training TBD Anticipated Discharge Home Destination Discharge With home care svs and support from family and friends Goals: Social Work: Goals Discharge Plan either return to her own home or to a friends home with home care svs Potential for Family Training TBD Anticipated Discharge Home Destination Discharge With home care svs and support from family and friends PHYSICAL THERAPY INITIAL GOALS: Independent bed mobility, transfers and ambulation 150ft with rolling walker or least restrictive device. 7 stairs with 1-2 rails independently. OCCUPATIONAL THERAPY INITIAL GOALS: Modified independent eating, toileting, dressing and bathing. Modified independent simple meal prep and home chores. Care Plan: Care Plan Coping/Psych-Improve/Maintain Start: 02/05/18 21:04 Freq: QSHIFT Status: Active Target: Protocol: Activity Type Activity Date Activity User E-Sign Co-Sign Detail Recorded Client Recorded Date Recorded By Document 02/06/18 03:56 [id number] [id number] 02/06/18 03:57 [id number] 02/06/18 03:56 PMRU Outcome: Coping/Psychosocial Coping Outcome/Goals Verbalization of Sense of Control Over Health Status Willingness to Participate in Treatment Plan and Basic Needs Utilization of Available Support Systems Psychosocial Outcome/Goals Maintain/ Improve Emotional Health Outcome/Goals Met Comment pt awknoledged her anxiety, pt pleasant with night assistant DVT Prophylaxis- Improve/Maintain Start: 02/05/18 21:04 Freq: QSHIFT Status: Active Target: Protocol: Activity Type Activity Date Activity User E-Sign Co-Sign Detail Recorded Client Recorded Date Recorded By Document 02/06/18 03:56 [id number] 02/06/18 03:57 [id number] 02/06/18 03:56 PMRU Outcome: DVT Prophylaxis Outcome/Goals Remains Free of DVT Complies with DVT Prophylaxis /Treatment Demonstrates Knowledge of DVT Prevention/ Treatment TEDS Stockings on Every AM, Off at HS Discharge Planning - Improve/Maintain Start: 02/06/18 03:55 Freq: DAILY Status: Active Target: Protocol: Activity Type Activity Date Activity User E-Sign Co-Sign Detail Recorded Client Recorded Date Recorded By Document 02/06/18 03:56 [id number] [email or web address] 02/06/18 03:57 [id number] 02/06/18 03:56 PMRU Outcome: Discharge Planning Update Patient Family No Outcome/Goals Demonstrates Understanding of Discharge Plan Education-Improve/Maintain Start: 02/05/18 21:04 Freq: QSHIFT Status: Active Target: Protocol: Activity Type Activity Date Activity User E-Sign Co-Sign Detail Recorded Client Recorded Date Recorded By Document 02/06/18 03:56 [id number] [email or web address] 02/06/18 03:57 [id number] 02/06/18 03:56 PMRU Outcome: Education Outcome/Goals Demonstrate/ Verbalize Understanding of Written Discharge Instructions Encourage Questions /GI-Improve/Maintain Start: 02/06/18 03:55 Freq: QSHIFT Status: Active Target: Protocol: Activity Type Activity Date Activity User E-Sign Co-Sign Detail Recorded Client Recorded Date Recorded By Document 02/06/18 03:56 [id number] 02/06/18 03:57 [id number] 02/06/18 03:56 PMRU Outcome: Genitourinary/ Gastrointestinal Genitourinary- Outcome/Goals Maintain/ Achieve Urinary Continence Remain Free of Hospital- Acquired UTI Gastrointestinal-Outcome/Goals Prevent Constipation Neurological- Improve/Maintain Start: 02/06/18 03:55 Freq: QSHIFT Status: Active Target: Protocol: Activity Type Activity Date Activity User E-Sign Co-Sign Detail Recorded Client Recorded Date Recorded By Document 02/06/18 03:56 [id number] 02/06/18 03:57 [id number] 02/06/18 03:56 PMRU Outcome: Neurological Weakness/Aphasia Weakness Outcome/Goals Maintain/ Achieve Baseline Neurological Status Maintain/ Improve Strength/ROM Pain/Comfort- Improve/Maintain Start: 02/06/18 03:55 Freq: QSHIFT Status: Active Target: Protocol: Activity Type Activity Date Activity User E-Sign Co-Sign Detail Recorded Client Recorded Date Recorded By Document 02/06/18 03:56 [id number] [email or web address] 02/06/18 03:57 [id number] 02/06/18 03:56 PMRU Outcome: Pain/Comfort Outcome/Goals Demonstrates Knowledge and Use of Available Comfort Measures Achieves Acceptable Comfort/Pain Level as Determined by Patient/Condit Maintain Comfort Level Allowing Patient to Fully Participate in Rehab Outcome/Goals Met Comment denies pain Medicine Note: Length of Stay: [6 more days] Anticipated Discharge Destination: Home Tentative Discharge Date: [02/12/18] Discharged to: [home]
[2018-02-06] MEDS: Melatonin 3 MG TAB PO SCH (21:00)
[2018-02-07] MEDS: Heparin VIAL(*) 5000 UNITS/ML VIAL (FIVE THOUSAND) SUBCUT SCH ×3 (06:25→21:24)
[2018-02-07] MEDS: Docusate CAP* 100 MG PO SCH ×2 (08:44→21:24)
[2018-02-07] MEDS: Cholecalciferol TAB* 1000 UNITS PO SCH (08:45)
[2018-02-07] MEDS: DULoxetine DR CAP* 30 MG CAP.DR PO SCH (08:45)
--- NOTE | 2018-02-07 09:38 | PN ---
Progress Note Date of Service: 02/07/18 Note: LYNDA FRANCOIS was visited. Nursing and therapy notes read and reviewed. No chest pain, shortness of breath or abdominal pain. Had good therapy sessions yesterday. No numbness or tingling. Current Medications: Active Medications Generic Name Dose Route Start Last Admin Trade Name Freq PRN Reason Stop Dose Admin Acetaminophen 650 mg 02/05/18 13:44 Tylenol Tab* PO Q4H PRN FEVER > 101 Al Hydrox/Mg Hydrox/Simethicone 30 ml 02/05/18 13:44 Maalox Plus* PO Q6H PRN INDIGESTION Alprazolam 0.25 mg 02/05/18 13:52 Xanax Tab* PO TID PRN anxiety, insomnia Bisacodyl 10 mg 02/05/18 13:44 Dulcolax Supp* GA DAILY PRN CONSTIPATION Cholecalciferol 5,000 units 02/06/18 09:00 02/07/18 08:45 Vitamin D Tab* PO 5,000 units DAILY EDUARD Administration Docusate Sodium 100 mg 02/05/18 21:00 02/07/18 08:44 Colace Cap* PO 100 mg BID EDUARD Administration Duloxetine HCl 90 mg 02/06/18 09:00 02/07/18 08:45 Cymbalta Cap* PO 90 mg DAILY EDUARD Administration Heparin Sodium (Porcine) 5,000 units 02/05/18 14:00 02/07/18 06:25 Heparin Vial(*) SUBCUT 5,000 units Q8HR EDUARD Administration Melatonin 3 mg 02/05/18 21:00 02/06/18 21:00 Melatonin PO 3 mg BEDTIME EDUARD Administration Protocol Ondansetron HCl 4 mg 02/05/18 13:53 Zofran Odt Tab* SL Q6H PRN NAUSEA/VOMITING Senna 2 tab 02/05/18 13:44 Senokot Tab* PO BEDTIME PRN CONSTIPATION Vitamin B Complex/Vitamin E 1 tab 02/06/18 09:00 02/06/18 10:16 B Complex-50* PO 1 tab DAILY EDUARD Administration Vital Signs: Vital Signs Temp Pulse Resp BP Pulse Ox 97.5 F 79 20 127/72 97 02/07/18 06:23 02/07/18 06:23 02/07/18 06:23 02/07/18 06:23 02/07/18 06:23 Exam: GEN: No acute distress. Alert and appropriate LUNGS: Clear to auscultation bilaterally. HEART: Regular rate and rhythm. ABDOMEN: Active bowel sounds. Soft, non-tender, non-distended. EXTREMITIES: No edema. NEURO: 5/5 strength in bilateral lower extremities with normal sensation. Assessment/Plan: 52-year-old woman with CLL and fatigue and diffuse weakness. 1. Chronic Lymphocytic Leukemia: Oncology follow up. No current treatment planned. 2. Fatigue and weakness: Neurology signed off as there does not appear to be a neurological etiology. 24hr urine for heavy metals pending results. PT/OT. I d/w her limiting visitations during the days she has therapies. She told friends not to visit until after 3pm during the week. Psychiatry following. 3. DVT prophylaxis: Subcutaneous heparin. 4. Anxiety and depression: Cymbalta increased to 90mg daily per Dr. Powers's recommendation starting 02/06. He will see her this week. She has an outpatient therapist. 5. Transaminitis and Hyperbilirubinemia: These are very mild. She has no abdominal pain. Recheck Thursday. 6. Advance directives: She is a full code. 7. Estimated LOS: 02/12/18. 02/07/18 09:36
[2018-02-07] MEDS: Vitamin B Complex TAB PO SCH (10:01)
[2018-02-07] MEDS: Melatonin 3 MG TAB PO SCH (21:24)
[2018-02-08] MEDS: ALPRAZolam TAB* 0.25 MG PO PRN ×2 (01:34→21:30)
[2018-02-08] MEDS: Heparin VIAL(*) 5000 UNITS/ML VIAL (FIVE THOUSAND) SUBCUT SCH ×3 (05:46→21:31)
[2018-02-08 06:35] LABS: EGFR Non-African American 91.2 (>60)
[2018-02-08] MEDS: Docusate CAP* 100 MG PO SCH ×2 (09:41→21:30)
[2018-02-08] MEDS: Vitamin B Complex TAB PO SCH (09:41)
[2018-02-08] MEDS: DULoxetine DR CAP* 30 MG CAP.DR PO SCH (09:41)
[2018-02-08] MEDS: Cholecalciferol TAB* 1000 UNITS PO SCH (09:41)
--- NOTE | 2018-02-08 16:43 | PN ---
Progress Note Date of Service: 02/08/18 Note: LYNDA FRANCOIS was visited. Therapy notes read and reviewed. I observed her ambulating and she did very well with a walker. She seems strong today. Current Medications: Active Medications Generic Name Dose Route Start Last Admin Trade Name Freq PRN Reason Stop Dose Admin Acetaminophen 650 mg 02/05/18 13:44 Tylenol Tab* PO Q4H PRN FEVER > 101 Al Hydrox/Mg Hydrox/Simethicone 30 ml 02/05/18 13:44 Maalox Plus* PO Q6H PRN INDIGESTION Alprazolam 0.25 mg 02/05/18 13:52 02/08/18 01:34 Xanax Tab* PO 0.25 mg TID PRN Administration anxiety, insomnia Bisacodyl 10 mg 02/05/18 13:44 Dulcolax Supp* ID DAILY PRN CONSTIPATION Cholecalciferol 5,000 units 02/06/18 09:00 02/08/18 09:41 Vitamin D Tab* PO 5,000 units DAILY EDUARD Administration Docusate Sodium 100 mg 02/05/18 21:00 02/08/18 09:41 Colace Cap* PO Not Given BID EDUARD Duloxetine HCl 90 mg 02/06/18 09:00 02/08/18 09:41 Cymbalta Cap* PO 90 mg DAILY EDUARD Administration Heparin Sodium (Porcine) 5,000 units 02/05/18 14:00 02/08/18 14:11 Heparin Vial(*) SUBCUT 5,000 units Q8HR EDUARD Administration Melatonin 3 mg 02/05/18 21:00 02/07/18 21:24 Melatonin PO 3 mg BEDTIME EDUARD Administration Protocol Ondansetron HCl 4 mg 02/05/18 13:53 Zofran Odt Tab* SL Q6H PRN NAUSEA/VOMITING Senna 2 tab 02/05/18 13:44 Senokot Tab* PO BEDTIME PRN CONSTIPATION Vitamin B Complex/Vitamin E 1 tab 02/06/18 09:00 02/08/18 09:41 B Complex-50* PO 1 tab DAILY EDUARD Administration Vital Signs: Vital Signs Temp Pulse Resp BP Pulse Ox 98.1 F 82 18 146/89 95 02/08/18 16:10 02/08/18 16:10 02/08/18 16:10 02/08/18 16:10 02/08/18 16:12 Lab Results: Laboratory Results - last 24 hr 02/06/18 02/08/18 06:41 06:00 Hem Pathologist Commnt Sodium 137 Potassium 4.2 Chloride 105 Carbon Dioxide 27 Anion Gap 5 BUN 10 Creatinine 0.68 Est GFR ( Amer) 110.4 Est GFR (Non-Af Amer) 91.2 BUN/Creatinine Ratio 14.7 Glucose 109 H Calcium 9.0 Total Bilirubin 1.00 AST 61 H ALT 102 H Alkaline Phosphatase 71 Total Protein 6.8 Albumin 4.0 Globulin 2.8 Albumin/Globulin Ratio 1.4 Exam: GENERAL: No acute distress. Alert and appropriate LUNGS: Clear to auscultation bilaterally. HEART: Regular rate and rhythm. ABDOMEN: Active bowel sounds. Soft, non-tender, non-distended. EXTREMITIES: No edema. NEUROLOGIC: 5/5 strength in bilateral lower extremities with normal sensation. Assessment/Plan: 1. Chronic Lymphocytic Leukemia: Oncology follow up. No current treatment planned. 2. Fatigue and weakness: Etiology remains unclear. PT/OT. Psychiatry following. 3. DVT prophylaxis: Subcutaneous heparin. 4. Anxiety and depression: Cymbalta increased to 90mg daily per Dr. Powers's recommendation starting 02/06. She has an outpatient therapist. 5. Transaminitis and Hyperbilirubinemia: Normalizing. 6. Advance directives: She is a full code. 7. Estimated LOS: 02/12/18. 02/08/18 16:44
[2018-02-08] MEDS: Melatonin 3 MG TAB PO SCH (21:30)
[2018-02-09] MEDS: Heparin VIAL(*) 5000 UNITS/ML VIAL (FIVE THOUSAND) SUBCUT SCH ×3 (06:34→21:40)
[2018-02-09] MEDS: Docusate CAP* 100 MG PO SCH ×2 (10:02→20:55)
[2018-02-09] MEDS: DULoxetine DR CAP* 30 MG CAP.DR PO SCH (10:03)
[2018-02-09] MEDS: Vitamin B Complex TAB PO SCH (10:03)
[2018-02-09] MEDS: Cholecalciferol TAB* 1000 UNITS PO SCH (10:03)
--- NOTE | 2018-02-09 12:30 | PMRUTEAM ---
PMRU: Team Meeting Current Status: Nursing: Current Status Skin Deviations [Posterior Rash Neck] Skin Deviations [Lower Back] Previous Access Point Skin Deviations [Left Lower Abrasion Leg] Skin Deviations [Left Groin] Rash Skin Deviation Description [ mild rash Posterior Neck] Skin Deviation Description [ slight rash Lower Back] Skin Deviation Description [ s/p fall prior to admission Left Lower Leg] Skin Deviation Description [ lt hip, groin Left Groin] Physical Therapy: Current Status Bed Mobility Assistance Supervision Transfer Moblility Assistance Supervision Transfer/Bed Mobility None,Rolling Walker Recommended Devices Transfer Mobility Comment improving sit to stand, needs cues for consistant procedure Ambulation Assistance Supervision Ambulation Assistive Devices Rolling Walker Number of Feet Patient 300, Ambulated Ambulation Comment improving speed and stability Stairs Assistance Supervision Stairs Recommended Devices Two Rails Number of Stairs 5 Occupational Therapy: Current Status Upper Body Dressing Supervision Lower Body Dressing Supervision Bathing Supervision Toileting Supervision Toilet Transfer Supervision Shower Transfer Supervision Eating Independent Rec Therapy: Current Status Summary of Assessment and RT assessment complete and pt. is aware of RT Clinical Impression services. Pt. has been very involved with visitors and has been engaging in crossword puzzles provided to her. Treatment Goals Pt. will engage in leisure activities while on the unit. Treatment Plan Provide RT services and encourage involvement. Social Work: Current Status Discharge Plan return home with home care svs and support from friends Potential for Family Training N/A Anticipated Discharge Home Destination Discharge With home care svs and support from friends Goals: Physical Therapy: Initial Goals Bed Mobility Assistance Independent Transfer Mobility Assistance Independent Transfer/Bed Mobility None,Rolling Walker Recommended Devices Ambulation Independent Ambulation Recommended Devices None,Rolling Walker Ambulation Distance 150 Stairs Assistance Independent Stair Recommended Devices Two Rails Number of Stairs 10 Physical Therapy: Updated Goals Transfer/Bed Mobility Rolling Walker Recommended Devices Occupational Therapy: Initial Goals Goals to be Completed in (Days 5-7 ) Upper Body Bathing Routine Independent Lower Body Bathing Routine Modified Independent with Upper Body Dressing Routine Independent Lower Body Dressing Routine Modified Independent with Toilet Hygeine and Clothing Modified Independent with Management Routine Toilet Transfer Routine Modified Independent with Step-In Shower Transfer Modified Independent with Routine Functional Transfers for ADL Modified Independent with Grooming Routine Independent Feeding Routine Independent Light Housekeeping Tasks Minimal Contact Assist Social Work: Goals Discharge Plan return home with home care svs and support from friends Potential for Family Training N/A Anticipated Discharge Home Destination Discharge With home care svs and support from friends Care Plan: Care Plan ADL's - Improve/Maintain Start: 02/06/18 03:55 Freq: DAILY Status: Active Target: Protocol: Activity Type Activity Date Activity User E-Sign Co-Sign Detail Recorded Client Recorded Date Recorded By Document 02/09/18 11:36 [id number] [id number] 02/09/18 11:36 [id number] 02/09/18 11:36 PMRU Outcome: ADL's/ADL Transfers Orders/Interventions Occupational Therapy Evaluation & Treatment Communication Tool in Patient Room Device Yes Address Deficits Secondary To: weakness Patient to receive OT 5x/wk for 60-120 Therex min/day Self Care Management Group Therapy Neuromuscular ReEducation UE/LE ADL's with Assist Yes: Dilshad ADL Transfers with Assist Yes: Dilshad Toileting: Transfers,Clothing Management Yes: Dilshad ,Hygeine w/Assist Light Kitchen/Laundry w/Assist Yes: Shavon Progression Toward Outcome/Goals Progressing Outcome/Goals Met Pt demonstrates increased independence this date with ADL routine and no LOB. Pt tolerating therapy continuing to take breaks as needed. Increased spinner fixer strength noted this date. Coping/Psych-Improve/Maintain Start: 02/05/18 21:04 Freq: QSHIFT Status: Active Target: Protocol: Activity Type Activity Date Activity User E-Sign Co-Sign Detail Recorded Client Recorded Date Recorded By Document 02/09/18 00:12 [id number] [email or web address] 02/09/18 00:13 [id number] 02/09/18 00:12 PMRU Outcome: Coping/Psychosocial Coping Outcome/Goals Verbalization of Sense of Control Over Health Status Utilization of Appropriate Problem Solving Techniques Willingness to Participate in Treatment Plan and Basic Needs Utilization of Available Support Systems Psychosocial Outcome/Goals Maintain/ Improve Emotional Health Cooperate/ Participate in Plan Progression Toward Outcome/Goals - Progressing Coping Progression Toward Outcome/Goals - Progressing Psychosocial DVT Prophylaxis- Improve/Maintain Start: 02/05/18 21:04 Freq: QSHIFT Status: Active Target: Protocol: Activity Type Activity Date Activity User E-Sign Co-Sign Detail Recorded Client Recorded Date Recorded By Document 02/09/18 00:12 [id number] [email or web address] 02/09/18 00:13 [id number] 02/09/18 00:12 PMRU Outcome: DVT Prophylaxis Outcome/Goals Remains Free of DVT Complies with DVT Prophylaxis /Treatment Demonstrates Knowledge of DVT Prevention/ Treatment TEDS Stockings on Every AM, Off at HS Progression Toward Outcome/Goals Progressing Discharge Planning - Improve/Maintain Start: 02/06/18 03:55 Freq: DAILY Status: Active Target: Protocol: Activity Type Activity Date Activity User E-Sign Co-Sign Detail Recorded Client Recorded Date Recorded By Document 02/09/18 00:12 [id number] [email or web address] 02/09/18 00:13 [id number] 02/09/18 00:12 PMRU Outcome: Discharge Planning Update Patient Family No Outcome/Goals Demonstrates Understanding of Discharge Plan Progression Toward Outcome/Goals Progressing Education-Improve/Maintain Start: 02/05/18 21:04 Freq: QSHIFT Status: Active Target: Protocol: Activity Type Activity Date Activity User E-Sign Co-Sign Detail Recorded Client Recorded Date Recorded By Document 02/09/18 00:12 [id number] [email or web address] 02/09/18 00:13 [id number] 02/09/18 00:12 PMRU Outcome: Education Outcome/Goals Encourage Questions Progression Toward Outcome/Goals Progressing /GI-Improve/Maintain Start: 02/06/18 03:55 Freq: QSHIFT Status: Active Target: Protocol: Activity Type Activity Date Activity User E-Sign Co-Sign Detail Recorded Client Recorded Date Recorded By Document 02/09/18 00:12 [id number] [email or web address] 02/09/18 00:13 [id number] 02/09/18 00:12 PMRU Outcome: Genitourinary/ Gastrointestinal Genitourinary- Outcome/Goals Maintain/ Achieve Urinary Continence Remain Free of Hospital- Acquired UTI Gastrointestinal-Outcome/Goals Maintain/ Achieve Bowel Regularity in Accordance with Pt's Baseline Prevent Constipation Progression Toward Outcome/Goals - Progressing Progression Toward Outcome/Goals - GI Progressing Outcome/Goals Met Comment patient declined Colace Mobility- Improve/Maintain Start: 02/06/18 03:55 Freq: DAILY Status: Active Target: Protocol: Activity Type Activity Date Activity User E-Sign Co-Sign Detail Recorded Client Recorded Date Recorded By Document 02/06/18 19:01 [id number] [email or web address] 02/06/18 19:02 [id number] 02/06/18 19:01 PMRU Outcome: Mobility Physical Therapy Evaluation and Yes Treatment Activity OOB with Assistance Yes WBAT Yes Device Yes Assistance Yes Patient to be seen 5x/wk for 60-120 min/ Therex day for: Mobility Training Gait Training Balance Outcome/Goals Maintain/ Achieve Baseline Mobility Status Improve Mobility Status Demonstrates Proper Use of Assistive Devices Free from Complications of Immobility Bed Mobility Yes: independent Transfers Yes: independent with/without Rw Gait x ft Yes: independent 150 ' with rollign walker. Up/Down Stairs Yes: independent up/ down 12 stairs with Bilateral rails. Neurological- Improve/Maintain Start: 02/06/18 03:55 Freq: QSHIFT Status: Active Target: Protocol: Activity Type Activity Date Activity User E-Sign Co-Sign Detail Recorded Client Recorded Date Recorded By Document 02/09/18 00:12 [id number] 02/09/18 00:13 [id number] 02/09/18 00:12 PMRU Outcome: Neurological Weakness/Aphasia Weakness Outcome/Goals Maintain/ Achieve Baseline Neurological Status Maintain/ Improve Strength/ROM Progression Toward Outcome/Goals Progressing Pain/Comfort- Improve/Maintain Start: 02/06/18 03:55 Freq: QSHIFT Status: Active Target: Protocol: Activity Type Activity Date Activity User E-Sign Co-Sign Detail Recorded Client Recorded Date Recorded By Document 02/09/18 00:12 [id number] [email or web address] 02/09/18 00:13 [id number] 02/09/18 00:12 PMRU Outcome: Pain/Comfort Outcome/Goals Demonstrates Knowledge and Use of Available Comfort Measures Achieves Acceptable Comfort/Pain Level as Determined by Patient/Condit Maintain Comfort Level Allowing Patient to Fully Participate in Rehab Progression Toward Outcome/Goals Progressing Outcome/Goals Met Comment pt resting at this time Medicine Note: Length of Stay: 3 days Anticipated Discharge Destination: Home Tentative Discharge Date: 02/12/18 Discharged to: Home
--- NOTE | 2018-02-09 19:26 | PN ---
Progress Note Date of Service: 02/09/18 Note: LYNDA FRANCOIS was visited. Therapy notes read and reviewed. She was discussed in interdisciplinary team rounds. She has gotten stronger with all therapies and walks pretty well. Current Medications: Active Medications Generic Name Dose Route Start Last Admin Trade Name Freq PRN Reason Stop Dose Admin Acetaminophen 650 mg 02/05/18 13:44 Tylenol Tab* PO Q4H PRN FEVER > 101 Al Hydrox/Mg Hydrox/Simethicone 30 ml 02/05/18 13:44 Maalox Plus* PO Q6H PRN INDIGESTION Alprazolam 0.25 mg 02/05/18 13:52 02/08/18 21:30 Xanax Tab* PO 0.25 mg TID PRN Administration anxiety, insomnia Bisacodyl 10 mg 02/05/18 13:44 Dulcolax Supp* [place] DAILY PRN CONSTIPATION Cholecalciferol 5,000 units 02/06/18 09:00 02/09/18 10:03 Vitamin D Tab* PO 5,000 units DAILY EDUARD Administration Docusate Sodium 100 mg 02/05/18 21:00 02/09/18 10:02 Colace Cap* PO Not Given BID EDUARD Duloxetine HCl 90 mg 02/06/18 09:00 02/09/18 10:03 Cymbalta Cap* PO 90 mg DAILY EDUARD Administration Heparin Sodium (Porcine) 5,000 units 02/05/18 14:00 02/09/18 14:40 Heparin Vial(*) SUBCUT 5,000 units Q8HR EDUARD Administration Melatonin 3 mg 02/05/18 21:00 02/08/18 21:30 Melatonin PO 3 mg BEDTIME EDUARD Administration Protocol Ondansetron HCl 4 mg 02/05/18 13:53 Zofran Odt Tab* SL Q6H PRN NAUSEA/VOMITING Senna 2 tab 02/05/18 13:44 Senokot Tab* PO BEDTIME PRN CONSTIPATION Vitamin B Complex/Vitamin E 1 tab 02/06/18 09:00 02/09/18 10:03 B Complex-50* PO 1 tab DAILY EDUARD Administration Vital Signs: Vital Signs Temp Pulse Resp BP Pulse Ox 98.0 F 76 18 134/71 95 02/09/18 16:02 02/09/18 16:02 02/09/18 16:02 02/09/18 16:02 02/09/18 16:02 Exam: GENERAL: No acute distress. Alert and appropriate LUNGS: Clear to auscultation bilaterally. HEART: Regular rate and rhythm. ABDOMEN: Active bowel sounds. Soft, non-tender, non-distended. EXTREMITIES: No edema. NEUROLOGIC: 5/5 strength in bilateral lower extremities with normal sensation. Assessment/Plan: 1. Chronic Lymphocytic Leukemia: Oncology follow up. No current treatment planned. 2. Fatigue and weakness: Etiology remains unclear. PT/OT. Psychiatry following. 3. DVT prophylaxis: Subcutaneous heparin. 4. Anxiety and depression: Cymbalta increased to 90mg daily per Dr. Powers's recommendation starting 02/06. She has an outpatient therapist. 5. Transaminitis and Hyperbilirubinemia: Normalizing. 6. Advance directives: She is a full code. 7. Estimated LOS: 02/12/18. 02/09/18 19:26
[2018-02-09] MEDS: Melatonin 3 MG TAB PO SCH (21:36)
[2018-02-10 00:17] LABS: Urine Volume 1850 mL
[2018-02-10] MEDS: Acetaminophen TAB* 325 MG PO PRN (00:28)
[2018-02-10] MEDS: Heparin VIAL(*) 5000 UNITS/ML VIAL (FIVE THOUSAND) SUBCUT SCH ×3 (05:41→21:28)
[2018-02-10] MEDS: Docusate CAP* 100 MG PO SCH ×2 (08:39→21:27)
[2018-02-10] MEDS: Cholecalciferol TAB* 1000 UNITS PO SCH (08:39)
[2018-02-10] MEDS: DULoxetine DR CAP* 30 MG CAP.DR PO SCH (08:39)
[2018-02-10] MEDS: Vitamin B Complex TAB PO SCH (08:39)
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
--- NOTE | 2018-02-10 19:44 | PN ---
Progress Note Date of Service: 02/10/18 Note: LYNDA FRANCOIS was visited. Therapy notes read and reviewed. She is feeling quite strong today and getting ready for discharge. She was able to walk outside today. Psychiatry note appreciated Current Medications: Active Medications Generic Name Dose Route Start Last Admin Trade Name Freq PRN Reason Stop Dose Admin Acetaminophen 650 mg 02/05/18 13:44 02/10/18 00:28 Tylenol Tab* PO 650 mg Q4H PRN Administration FEVER > 101 Al Hydrox/Mg Hydrox/Simethicone 30 ml 02/05/18 13:44 Maalox Plus* PO Q6H PRN INDIGESTION Alprazolam 0.25 mg 02/05/18 13:52 02/08/18 21:30 Xanax Tab* PO 0.25 mg TID PRN Administration anxiety, insomnia Bisacodyl 10 mg 02/05/18 13:44 Dulcolax Supp* [place] DAILY PRN CONSTIPATION Cholecalciferol 5,000 units 02/06/18 09:00 02/10/18 08:39 Vitamin D Tab* PO 5,000 units DAILY EDUARD Administration Docusate Sodium 100 mg 02/05/18 21:00 02/10/18 08:39 Colace Cap* PO Not Given BID EDUARD Duloxetine HCl 90 mg 02/06/18 09:00 02/10/18 08:39 Cymbalta Cap* PO 90 mg DAILY EDUARD Administration Heparin Sodium (Porcine) 5,000 units 02/05/18 14:00 02/10/18 15:02 Heparin Vial(*) SUBCUT 5,000 units Q8HR EDUARD Administration Melatonin 3 mg 02/05/18 21:00 02/09/18 21:36 Melatonin PO 3 mg BEDTIME EDUARD Administration Protocol Ondansetron HCl 4 mg 02/05/18 13:53 Zofran Odt Tab* SL Q6H PRN NAUSEA/VOMITING Senna 2 tab 02/05/18 13:44 Senokot Tab* PO BEDTIME PRN CONSTIPATION Vitamin B Complex/Vitamin E 1 tab 02/06/18 09:00 02/10/18 08:39 B Complex-50* PO 1 tab DAILY EDUARD Administration Vital Signs: Vital Signs Temp Pulse Resp BP Pulse Ox 98.2 F 77 16 140/73 95 02/10/18 16:20 02/10/18 16:20 02/10/18 16:20 02/10/18 16:20 02/10/18 17:46 Lab Results: Laboratory Results - last 24 hr 02/07/18 08:20 Ur Collection Duration 24 Ur Total Volume 1850 Ur Arsenic 24 Hour 8 U Arsenic Concentrat 4 Urine Cadmium 24 Hour <0.5 Urine Lead 24 Hour <1 Urine Mercury 24 Hour <2 Exam: GENERAL: No acute distress. Alert and appropriate LUNGS: Clear to auscultation bilaterally. HEART: Regular rate and rhythm. ABDOMEN: Active bowel sounds. Soft, non-tender, non-distended. EXTREMITIES: No edema. NEUROLOGIC: 5/5 strength in bilateral lower extremities with normal sensation. Assessment/Plan: 1. Chronic Lymphocytic Leukemia: Oncology follow up. No current treatment planned. 2. Fatigue and weakness: Etiology remains unclear. PT/OT. Psychiatry following. She has definitely improved after therapies 3. DVT prophylaxis: Subcutaneous heparin. 4. Anxiety and depression: Cymbalta increased to 90mg daily per Dr. Powers's recommendation starting 02/06. She has an outpatient therapist. 5. Transaminitis and Hyperbilirubinemia: Normalizing. 6. Advance directives: She is a full code. 7. Estimated LOS: 02/12/18. 02/10/18 19:45
[2018-02-10] MEDS: Melatonin 3 MG TAB PO SCH (21:27)
[2018-02-11] MEDS: Heparin VIAL(*) 5000 UNITS/ML VIAL (FIVE THOUSAND) SUBCUT SCH ×2 (09:18→21:31)
[2018-02-11] MEDS: Cholecalciferol TAB* 1000 UNITS PO SCH (09:18)
[2018-02-11] MEDS: DULoxetine DR CAP* 30 MG CAP.DR PO SCH (09:18)
[2018-02-11] MEDS: Docusate CAP* 100 MG PO SCH ×2 (09:19→21:25)
[2018-02-11] MEDS: Vitamin B Complex TAB PO SCH (10:15)
--- NOTE | 2018-02-11 20:24 | PN ---
Progress Note Date of Service: 02/11/18 Note: LYNDA FRANCOIS was visited. Therapy notes read and reviewed. She is feeling ready for discharge tomorrow. Walking well. Current Medications: Active Medications Generic Name Dose Route Start Last Admin Trade Name Freq PRN Reason Stop Dose Admin Acetaminophen 650 mg 02/05/18 13:44 02/10/18 00:28 Tylenol Tab* PO 650 mg Q4H PRN Administration FEVER > 101 Al Hydrox/Mg Hydrox/Simethicone 30 ml 02/05/18 13:44 Maalox Plus* PO Q6H PRN INDIGESTION Alprazolam 0.25 mg 02/05/18 13:52 02/08/18 21:30 Xanax Tab* PO 0.25 mg TID PRN Administration anxiety, insomnia Bisacodyl 10 mg 02/05/18 13:44 Dulcolax Supp* [place] DAILY PRN CONSTIPATION Cholecalciferol 5,000 units 02/06/18 09:00 02/11/18 09:18 Vitamin D Tab* PO 5,000 units DAILY EDUARD Administration Docusate Sodium 100 mg 02/05/18 21:00 02/11/18 09:19 Colace Cap* PO Not Given BID EDUARD Duloxetine HCl 90 mg 02/06/18 09:00 02/11/18 09:18 Cymbalta Cap* PO 90 mg DAILY EDUARD Administration Heparin Sodium (Porcine) 5,000 units 02/11/18 09:00 02/11/18 09:18 Heparin Vial(*) SUBCUT 5,000 units Q12HR EDUARD Administration Melatonin 3 mg 02/05/18 21:00 02/10/18 21:27 Melatonin PO 3 mg BEDTIME EDUARD Administration Protocol Ondansetron HCl 4 mg 02/05/18 13:53 Zofran Odt Tab* SL Q6H PRN NAUSEA/VOMITING Senna 2 tab 02/05/18 13:44 Senokot Tab* PO BEDTIME PRN CONSTIPATION Vitamin B Complex/Vitamin E 1 tab 02/06/18 09:00 02/11/18 10:15 B Complex-50* PO 1 tab DAILY EDUARD Administration Vital Signs: Vital Signs Temp Pulse Resp BP Pulse Ox 98.2 F 88 20 140/88 95 02/11/18 16:09 02/11/18 16:09 02/11/18 16:09 02/11/18 16:09 11/08/18 16:34 Exam: GENERAL: No acute distress. Alert and appropriate LUNGS: Clear to auscultation bilaterally. HEART: Regular rate and rhythm. ABDOMEN: Active bowel sounds. Soft, non-tender, non-distended. EXTREMITIES: No edema. NEUROLOGIC: 5/5 strength in bilateral lower extremities with normal sensation. Assessment/Plan: 1. Chronic Lymphocytic Leukemia: Oncology follow up. No current treatment planned. 2. Fatigue and weakness: Etiology remains unclear. PT/OT. Psychiatry following. She has definitely improved after therapies 3. DVT prophylaxis: Subcutaneous heparin. 4. Anxiety and depression: Cymbalta increased to 90mg daily. She has an outpatient therapist. 5. Transaminitis and Hyperbilirubinemia: Normalizing. 6. Advance directives: She is a full code. 7. Estimated LOS: 02/12/18. 02/11/18 20:24
[2018-02-11] MEDS: Acetaminophen TAB* 325 MG PO PRN (21:31)
[2018-02-11] MEDS: Melatonin 3 MG TAB PO SCH (21:32)
[2018-02-12] MEDS: Vitamin B Complex TAB PO SCH (09:12)
[2018-02-12] MEDS: Cholecalciferol TAB* 1000 UNITS PO SCH (09:13)
[2018-02-12] MEDS: Heparin VIAL(*) 5000 UNITS/ML VIAL (FIVE THOUSAND) SUBCUT SCH (09:13)
[2018-02-12] MEDS: DULoxetine DR CAP* 30 MG CAP.DR PO SCH (09:13)
[2018-02-12] MEDS: Docusate CAP* 100 MG PO SCH (09:13)
[2018-02-12 16:28] VITALS: BP 137/85
--- NOTE | 2018-02-14 04:52 | DS ---
CC: Dr. Wellington Craig * DISCHARGE SUMMARY: DATE OF ADMISSION: 02/05/18 DATE OF DISCHARGE: 02/12/18 DISCHARGE DIAGNOSES: 1. Functional limb weakness. 2. Chronic lymphocytic leukemia. 3. Anxiety. 4. Depression. HISTORY OF PRESENT ILLNESS AND HOSPITAL COURSE: For complete history of the events leading up to her rehab stay, please see the history and physical dictated by Dr. Farhana Mcclelland on 02/05/18. While on the rehab unit, the patient was medically stable. She did have a transient rise in her transaminases and bilirubin, which were normalizing on followup. The patient was otherwise medically stable. She was seen by Physical Therapy and Occupational Therapy and made good gains with both disciplines. With physical therapy at the time of admission, the patient required contact guard to do a transfer, she was able to ambulate 100 feet with contact guard. With occupational therapy at the time of admission, the patient required supervision for upper body dressing, contact guard for lower body dressing, supervision for bathing, contact guard for toileting, contact guard for toilet transfers. By the time of discharge, she was independent in all activities. She was ambulating 300 feet independently. The patient was discharged home 02/12/18. Discharge diet was regular. DISCHARGE MEDICATIONS: 1. Xanax 0.25 mg 3 times a day as needed. 2. Cymbalta 90 mg daily. 3. Vitamin B complex 1 capsule every day. SERVICES AFTER DISCHARGE: The patient will have outpatient physical therapy at [facility]. She will also follow up with her primary care doctor , Dr. Wellington craig. TIME SPENT: Time for this discharge was approximately 50 minutes. Greater than half of that was spent with the patient discussing post rehab therapy, medications, and followup. [id number]/[facility] #: [id number] ROE
== END 2018-02-12 16:40 | disposition home or self-care (01) | DRG 691 ==
LOC: PMRU 13:44
PROVIDERS: ADMIT Physical Medicine & Rehabilitation; ATTEND Physical Medicine & Rehabilitation
PROC: F07Z5ZZ Bed Mobility Treatment (ICD-10-PCS; principal; 2018-02-05)
PROC: F07Z9ZZ Gait Training/Functional Ambulation Treatment (ICD-10-PCS; 2018-02-05)
PROC: F07Z8ZZ Transfer Training Treatment (ICD-10-PCS; 2018-02-05)
PROC: F08Z0ZZ Bathing/Showering Techniques Treatment (ICD-10-PCS; 2018-02-05)
PROC: F08Z1ZZ Dressing Techniques Treatment (ICD-10-PCS; 2018-02-05)
PROC: F08Z3ZZ Feeding/Eating Treatment (ICD-10-PCS; 2018-02-05)
DX: C91.10 Chronic lymphocytic leukemia of B-cell type not having achieved remission (principal); R53.1 Weakness; G47.33 Obstructive sleep apnea (adult) (pediatric); F32.9 Major depressive disorder, single episode, unspecified; F41.9 Anxiety disorder, unspecified; F44.4 Conversion disorder with motor symptom or deficit; E66.9 Obesity, unspecified; E80.6 Other disorders of bilirubin metabolism; R74.0 Nonspecific elevation of levels of transaminase and lactic acid dehydrogenase [LDH]; Z68.39 Body mass index [BMI] 39.0-39.9, adult; Z79.1 Long term (current) use of non-steroidal anti-inflammatories (NSAID); Z79.899 Other long term (current) drug therapy; Z91.013 Allergy to seafood; Z88.8 Allergy status to other drugs, medicaments and biological substances; Z91.018 Allergy to other foods; Z82.49 Family history of ischemic heart disease and other diseases of the circulatory system
CPT/HCPCS: 36415; 80053; 82175; 82300; 83655; 83825; 85025; 85060; A9270-GY; J1644

== ENCOUNTER 2018-07-07 23:02 | Emergency (ER) | payer BC ==
[2018-07-07] MEDS ORDERED: Meclizine TAB* 12.5 MG PO ONE (23:56)
[2018-07-07] MEDS ORDERED: NS 0.9% 1000 ML** 1,000 ML IV ONE (23:56)
[2018-07-07] MEDS ORDERED: Ondansetron INJ* 2 MG/ML VIAL IV ONE (23:57)
[2018-07-08 00:17] LABS: Hematocrit 41 % (33-41); Hemoglobin 13.2 g/dL (12.0-16.0); Mean Corpuscular HGB Conc 32 g/dL (31-36); Mean Corpuscular Hemoglobin 27 pg (27-31); Mean Corpuscular Volume 82 fL (80-97); Mean Platelet Volume 7.2 fL (7.4-10.4); Platelet Count 289 10^3/uL (150-450); Red Blood Count 4.97 10^6 /uL (3.70-4.87); Red Cell Distribution Width 16 % (10.5-15); White Blood Count 29.1 10^3/uL (3.5-10.8)
--- NOTE | 2018-07-08 00:19 | ED ---
Dizziness - HPI Summary HPI Summary: 53 year old female presents with sudden onset of dizziness today. States she was dancing when she felt the dizzy. Feels like a room is spinning. She states that feels like can't take a deep breath. Denies any chest pain. No headache. No change in vision. She states she has been having some tingling and numbness of her hands. She admits to weakness. She has had this before. She had a full workup in feb for this here that included an MRI and nerve conduction studies. States the patient diagnosed with conversion disorder. She states that she's been taking medications and is going to therapy which has been helping. States she started a new medication (modafinil) couple weeks ago and just doubled the dose 2 days ago. States she missed her normal nap and thinks that this may be causing dizziness. She states the dizziness worse with movement. - History Of Current Complaint Chief Complaint: EDDizziness Stated Complaint: DIZZY, FINGERS TINGLE PER PT Time Seen by Provider: 07/07/18 23:46 - Allergies/Home Medications Allergies/Adverse Reactions: Allergies Allergy/AdvReac Type Severity Reaction Status Date / Time bee venom protein (honey bee) Allergy Airway Verified 09/18/17 10:16 Obstruction hydralazine Allergy Difficulty Verified 02/06/18 14:20 Breathing lisinopril Allergy Coughing Verified 09/18/17 10:16 valsartan Allergy Dizziness Verified 09/18/17 10:16 venom-wasp Allergy Anaphylatic Verified 09/18/17 10:59 Shock Corticosteroids AdvReac See Comment Verified 02/03/18 11:21 (Glucocorticoids) egg plant Allergy Hives Uncoded 09/18/17 10:16 lobster Allergy Difficulty Uncoded 09/18/17 10:16 Breathing PMH/Surg Hx/FS Hx/Imm Hx Endocrine/Hematology History: Reports: Other Endocrine/Hematological Disorders - chronic lymphocytic leukemia Denies: Hx Diabetes, Hx Thyroid Disease, Hx Anemia Cardiovascular History: Reports: Hx Hypertension Denies: Hx Congestive Heart Failure, Hx Deep Vein Thrombosis, Hx Myocardial Infarction, Hx Pacemaker/ICD Respiratory History: Reports: Hx Chronic Bronchitis, Hx Sleep Apnea, Other Respiratory Problems/Disorders - Bronchitis a few times Denies: Hx Asthma, Hx Chronic Obstructive Pulmonary Disease (COPD), Hx Lung Cancer GI History: Denies: Hx Gall Bladder Disease, Hx Gastrointestinal Bleed, Hx Jaundice, Hx Ulcer, Hx Urosepsis History: Reports: Hx Kidney Stones Denies: Hx Renal Disease Musculoskeletal History: Reports: Other Musculoskeletal History - plantar fascitis in left foot Sensory History: Reports: Hx Contacts or Glasses Denies: Hx Hearing Aid, Other Sensory Impairments Opthamlomology History: Reports: Hx Contacts or Glasses Denies: Other Sensory Impairments Neurological History: Denies: Hx Dementia, Hx Migraine, Hx Seizures, Hx Transient Ischemic Attacks (TIA) Psychiatric History: Reports: Hx Anxiety, Hx Depression Denies: Hx Panic Disorder - Cancer History Cancer Type, Location and Year: CLL dx in 2004 Hx Chemotherapy: No Hx Radiation Therapy: No - Surgical History Surgery Procedure, Year, and Place: [facility]- . neck biopsy, RIGHT SIDED; Cardiac Cath Hx Anesthesia Reactions: No Infectious Disease History: Yes Infectious Disease History: Denies: Hx Clostridium Difficile, Hx Hepatitis, Hx Human Immunodeficiency Virus (HIV), Hx of Known/Suspected MRSA, Hx Shingles, Hx Tuberculosis, Hx Known/ Suspected VRE, Hx Known/Suspected VRSA, History Other Infectious Disease, Traveled Outside the [place] in Last 30 Days - Family History Known Family History: Positive: Cardiac Disease - maternal, earliest FHx -- grandmother at 42 from massive [place], Other - no FHx of Breast CA - Social History Alcohol Use: Rare Hx Substance Use: No Substance Use Type: Reports: None Hx Tobacco Use: No Smoking Status (MU): Never Smoked Tobacco Have You Smoked in the Last Year: No Review of Systems Negative: Fever Negative: Chest Pain Positive: Shortness Of Breath. Negative: Cough Positive: Nausea. Negative: Vomiting Neurological: Other - dizziness All Other Systems Reviewed And Are Negative: Yes Physical Exam Triage Information Reviewed: Yes Vital Signs On Initial Exam: Initial Vitals Temp Pulse Resp BP Pulse Ox 98.3 F 76 16 153/105 95 07/07/18 23:16 07/07/18 23:16 07/07/18 23:16 07/07/18 23:16 07/07/18 23:16 Vital Signs Reviewed: Yes Appearance: Positive: Well-Appearing Skin: Positive: Warm, Dry Head/Face: Positive: Normal Head/Face Inspection Eyes: Positive: Normal, EOMI, JEFF, Conjunctiva Clear ENT: Positive: Normal ENT inspection, Pharynx normal, TMs normal Respiratory/Lung Sounds: Positive: Clear to Auscultation, Breath Sounds Present Cardiovascular: Positive: Normal, RRR Abdomen Description: Positive: Nontender, Soft Bowel Sounds: Positive: Present Musculoskeletal: Positive: Normal Neurological: Positive: Sensory/Motor Intact, Alert, Oriented to Person Place, Time, CN Intact II-III Psychiatric: Positive: Normal Diagnostics - Vital Signs Vital Signs Temp Pulse Resp BP Pulse Ox 07/07/18 23:16 98.3 F 76 16 153/105 95 - Laboratory Lab Results: Lab Results 07/08/18 Range/Units 00:07 WBC 29.1 H (3.5-10.8) 10^3/uL RBC 4.97 H (3.70-4.87) 10^6 /uL Hgb 13.2 (12.0-16.0) g/dL Hct 41 (33-41) % MCV 82 (80-97) fL MCH 27 (27-31) pg MCHC 32 (31-36) g/dL RDW 16 H (10.5-15) % Plt Count 289 (150-450) 10^3/uL MPV 7.2 L (7.4-10.4) fL Neut % (Auto) Pending Lymph % (Auto) Pending Posey % (Auto) Pending Eos % (Auto) Pending Baso % (Auto) Pending Absolute Neuts (auto) Pending Absolute Lymphs (auto) Pending Absolute Monos (auto) Pending Absolute Eos (auto) Pending Absolute Basos (auto) Pending Absolute Nucleated RBC Pending Nucleated RBC % Pending Result Diagrams: 07/08/18 00:07 07/08/18 00:07 Lab Statement: Any lab studies that have been ordered have been reviewed, and results considered in the medical decision making process. - Radiology chest Radiology Interpretation Completed By: ED Physician Summary of Radiographic Findings: nad - CT brain CT Interpretation Completed By: ED Physician Summary of CT Findings: IMPRESSION: Normal noncontrast head CT. Re-Evaluation - Re-Evaluation First Eval Re-Evaluation Time: 01:21 Change: Improved Comment: feeling better, wants to go home, no SOB Dizzy Course/Dx - Course Course Of Treatment: 53 year old female presents with sudden onset of dizziness today. States she was dancing when she felt the dizzy. Feels like a room is spinning. She states that feels like can't take a deep breath. Denies any chest pain. No headache. No change in vision. She states she has been having some tingling and numbness of her hands. She admits to weakness. She has had this before. She had a full workup in feb for this here. States the patient diagnosed with conversion disorder. She states that she's been taking medications and is going to therapy which has been helping. States she started a new medication couple weeks ago and just doubled the dose 2 days ago. States she missed her normal nap and thinks that this may be causing dizziness. She states the dizziness worse with movement. On exam patient appears anxious. Lungs clear auscultation. Heart regular rate and rhythm. Normal neuro exam. good strength in extremitites. wbc elevated consistent with previous. wbc normal. electrolytes normal. troponin zero. gave fluids, zofran and meclizine and feeling better. CT brain normal. chest xray normal. patient no longer short of breath. patient does have positive hints test. discussed could be exhaustion , CLL, medication side effect or anxiety causing symptoms. with paitent presentation anxiety is likely the cause as with reassurance her symptoms resolved. told to follow up with primary. patient understand and agrees with plan. - Diagnoses Differential Diagnosis/HQI/PQRI: Benign Paroxysmal Positional Vertigo, Medication Reaction, Metabolic Abnormality Provider Diagnoses: Dizziness, Shortness of breath Discharge - Sign-Out/Discharge Documenting (check all that apply): Patient Departure Patient Received Moderate/Deep Sedation with Procedure: No - Discharge Plan Condition: Good Disposition: HOME Patient Education Materials: Dizziness (ED) Referrals: Wellington Naidu MD [Primary Care Provider] - Additional Instructions: Follow up with primary within 5 days Get plenty of rest contact psychiatric mental health nurse about symptoms to consider adjusting medications Return to ED if develop any new or worsening symptoms - Billing Disposition and Condition Condition: GOOD Disposition: Home
[2018-07-08 00:35] LABS: Albumin 4.1 g/dL (3.2-5.2); Albumin/Globulin Ratio 1.5 (1-3); BUN/Creatinine Ratio 18.8 (8-20); C Reactive Protein 4.4 mg/L (<8.01); Calcium 9.8 mg/dL (8.6-10.3); EGFR Non-African American 70.2 (>60); Globulin 2.7 g/dL (2-4); Magnesium 2.2 mg/dL (1.9-2.7); Potassium 4.4 mmol/L (3.5-5.0); Total Bilirubin 0.8 mg/dL (0.2-1.0); Total Protein 6.8 g/dL (6.4-8.9)
[2018-07-08 00:36] LABS: Troponin I 0.01 ng/mL (<0.04)
[2018-07-08 00:39] LABS: ABS Basophils 0.3 10^3/ul (0-0.2); ABS Eosinophils 0.2 10^3/ul (0-0.6); ABS Lymphocytes 22.8 10^3/ul (1.0-4.8); ABS Monocytes 0.6 10^3/ul (0-0.8); ABS Neutrophils 5.2 10^3/ul (1.5-7.7); ABS Nucleated RBC 0.3 10^3/ul; Eosinophil % 0.7 %; Lymphocyte % 78.3 %; Nucleated Red Blood Cells % 0.9
[2018-07-08 00:50] LABS: TSH (Thyroid Stimulating Horm) 3.02 mcIU/mL (0.34-5.60)
[2018-07-08 01:33] VITALS: BP 154/91
== END 2018-07-08 01:32 | disposition home or self-care (01) ==
LOC: ED 23:02
DX: R42 Dizziness and giddiness (principal); R06.02 Shortness of breath; I10 Essential (primary) hypertension; R11.0 Nausea
CPT/HCPCS: 36415; 70450; 71046; 80053; 83605; 83735; 83880; 84443; 84484; 85025; 85060; 86140; 96361; 96374; 96375; 99282; A9270-GY; J2405

== ENCOUNTER 2019-03-07 21:38 | Emergency (ER) | payer BC ==
--- NOTE | 2019-03-07 21:52 | UC ---
Cardiac HPI - HPI Summary HPI Summary: 53 yo woman with history of elevated blood pressure, borderline elevated cholesterol, borderline diabetes + FH of coronary artery disease who presents with onset of chest pain at about 1 pm, with radiation to the left arm. Although she denies shortness of breath, she is essentially unable to complete a sentence due to severe fatiguability. Blood pressure is elevated here to the 15-160 systolic range; typically she states that she runs in the high 130's. She has not performed any strenuous activity today, and her chronic fatigue is such that she takes at least 2 naps per day. She does not take a statin, has not tolerated antihypertensives, and is in the Within the month, she was unable to complete an exercises stress test. About 4 or 5 years ago, she had a coronary catheterization showing approx 30% blockage of one artery. - History of Current Complaint Stated Complaint: LEFT CHEST, ARM PAIN Time Seen by Provider: 03/07/19 21:39 Hx Obtained From: Patient, Family/Purchasing Administrative Assistant - here with her boyfriend who supplies part of her history Hx Last Menstrual Period: 09/04/17; IUD Onset/Duration: Sudden Onset, Lasting Hours Timing: Constant Current Severity: Moderate Chest Pain Location: Discrete at:, Upper Sternal Character: Dull/Aching Aggravating Factor(s): Nothing Alleviating Factor(s): Nothing Associated Signs & Symptoms: Positive: Chest Pain, Numbness - has bilateral hand numbness frequently.. Negative: Headaches - Risk Factors Pulmonary Embolism Risk Factors: Negative Cardiac Risk Factors: Hypertension, Diabetes, Family History Atrial Fibrillation: Hypertension TAD Risk Factors: Hypertension AMI/ACS Risk Factors: Myocardial Infarction, Sedentary Lifestyle, Obesity, Family History, Hypertension - Allergy/Home Medications Allergies/Adverse Reactions: Allergies Allergy/AdvReac Type Severity Reaction Status Date / Time bee venom protein (honey bee) Allergy Airway Verified 03/07/19 21:53 Obstruction epinephrine Allergy See Comment Verified 03/07/19 21:53 hydralazine Allergy Difficulty Verified 03/07/19 21:53 Breathing hydrochlorothiazide Allergy Difficulty Verified 03/07/19 21:53 Breathing lisinopril Allergy Coughing Verified 03/07/19 21:53 valsartan Allergy Dizziness Verified 03/07/19 21:53 venom-wasp Allergy Anaphylatic Verified 03/07/19 21:53 Shock Corticosteroids AdvReac See Comment Verified 03/07/19 21:53 (Glucocorticoids) egg plant Allergy Hives Uncoded 03/07/19 21:53 lobster Allergy Difficulty Uncoded 03/07/19 21:53 Breathing Home Medications: Home Medications ALPRAZolam TAB* [Xanax TAB*] 0.5 mg PO TID PRN 03/07/19 [History Confirmed 03/07] Calcium Carbonate [Tums] 1 dose PO ONCE PRN 03/07/19 [History Confirmed 03/07/19 ] Docusate Sodium 1 tab PO ONCE PRN 03/07/19 [History Confirmed 03/07/19] PMH/Surg Hx/FS Hx/Imm Hx Previously Healthy: No Cardiovascular History: Hypertension GI/ History: Gastroesophageal Reflux Other History Of: Negative For: HIV, Hepatitis B, Hepatitis C - Surgical History Surgical History: Yes Surgery Procedure, Year, and Place: [facility] [place]- . neck biopsy, RIGHT SIDED; Cardiac Cath - Family History Known Family History: Positive: Cardiac Disease - maternal, earliest FHx -- grandmother at 42 from massive [place], Other - no FHx of Breast CA; mother living with Lewy body dementia. - Social History Occupation: Disabled - curently seeking disability Alcohol Use: Rare Substance Use Type: None Smoking Status (MU): Never Smoked Tobacco Have You Smoked in the Last Year: No - Immunization History Most Recent Influenza Vaccination: 2018 Most Recent Tetanus Shot: up to date Most Recent Pneumonia Vaccination: 2013 Review of Systems All Other Systems Reviewed And Are Negative: Yes Constitutional: Positive: Fatigue Skin: Positive: Negative Eyes: Positive: Negative ENT: Positive: Negative Respiratory: Positive: Shortness Of Breath Cardiovascular: Positive: Chest Pain Gastrointestinal: Positive: Other - had reflux yesterday which responded to TUMS. Reflux has never felt similar to this. She recently had treatment of diverticulitis, at which time a pancreatic nodule was found on CT, currently having work up of this. Genitourinary: Positive: Negative Motor: Positive: Weakness - chronci Neurovascular: Positive: Negative Musculoskeletal: Positive: Negative Neurological: Positive: Weakness, Paresthesia Psychological: Positive: Negative Is Patient Immunocompromised?: No Physical Exam Triage Information Reviewed: Yes Appearance: Ill-Appearing - looks pale and reports extreme fatigue, finds if difficult to complete sentences., Pain Distress - mild, Obese Eye Exam: Other - ANGELIQUE Eyes: Positive: Conjunctiva Clear ENT: Positive: Pharynx normal Neck: Positive: Supple, Nontender, No Lymphadenopathy Respiratory: Positive: Lungs clear, Normal breath sounds Cardiovascular: Positive: RRR, No Murmur Abdominal Exam: Other - obese abdomen limits exam. Abdomen Description: Positive: Nontender. Negative: Distended, Guarding Musculoskeletal Exam: Other - grossly normal Musculoskeletal: Positive: No Edema Neurological: Positive: Alert Skin Exam: Normal Diagnostics - EKG Cardiac Rate: NL Cardiac Rhythm: Sinus: Normal Ectopy: None ST Segment: Non-Specific EKG Comparison: No Significant Change - compared to EKG from 02/2019, no significant change. - Assessment/Plan Course Of Treatment: Given hx of risk factors, advised that coronary artery disease cannot be ruled out without more evaluation. Advised emergency roomm assessment. - Differential Diagnoses - Chest Pain Differential Diagnosis/HQI/PQRI: ACS, Angina, Chest Wall - Differential Diagnoses - Hypertension Differential Diagnosis/HQI PQRI: Hypertension - Differential Diagnoses - Palpitations Differential Diagnosis/HQI/PQRI: Coronary Artery Disease - Clinical Impression Provider Diagnosis: Left-sided chest pain - Physician Notifications Discussed Patient Care With: ER provider Time Discussed With Above Provider: 22:20 Instructed by Provider To: Transfer Discharge ED - Sign-Out/Discharge Documenting (check all that apply): Patient Departure All imaging exams completed and their final reports reviewed: No Studies - Discharge Plan Condition: Stable Disposition: TRANS HIGHER LVL OF CARE FAC Referrals: Renita Hauser MD [Primary Care Provider] - - Billing Disposition and Condition Condition: STABLE Disposition: Trans Higher Lvl of Care Fac
[2019-03-07] MEDS ORDERED: Aspirin 81 mg CHEW TAB* 81 MG TAB.CHEW PO ONE (22:19)
[2019-03-07 22:26] VITALS: BP 150/84
[2019-03-08] MEDS ORDERED: Aspirin 81 mg CHEW TAB* 81 MG TAB.CHEW PO SCH (09:00)
== END 2019-03-07 22:30 | disposition short-term general hospital (02) ==
LOC: UCEAST 21:38
DX: R07.89 Other chest pain (principal); I10 Essential (primary) hypertension; R53.83 Other fatigue; R20.2 Paresthesia of skin; Z91.030 Bee allergy status; Z88.8 Allergy status to other drugs, medicaments and biological substances; Z91.038 Other insect allergy status; Z91.09 Other allergy status, other than to drugs and biological substances; Z91.013 Allergy to seafood
CPT/HCPCS: 93005; 99213; A9270-GY; G0463

== ENCOUNTER 2019-03-07 22:53 | Emergency (ER) | payer BC ==
--- NOTE | 2019-03-07 23:46 | ED ---
HPI Chest Pain - HPI Summary HPI Summary: Patient is a 53 y/o F presenting to [facility] with complaints of chest tightness. Sx onset around noon of 03/07/19. She notes that her pain has begun to radiate to her left shoulder. No SOB, nausea, diaphoresis noted. notes that, around six days ago, at 1800, the patient experienced sharp pain in her abdomen , started sweating, and had intense diarrhea. Sx cleared after an hour and this presentation has not repeated since then. Patient notes that she is currently fatigued. PMHx of chronic fatigue syndrome is reported. Patient had a cardiacs stress test for fatigue syndrome. She states that she was not able to the complete stress test due to fatigue. PMHx of CLL, HTN, HLD is reported. She is on Cymbalta 60 mg. Allergies to "various blood pressure medications" stated. She claims no tobacco usage, rare alcohol consumption, and some marijuana usage. FMHx of cardiac disease is endorsed. - History of Current Complaint Chief Complaint: EDChestPainROMI Time Seen by Provider: 03/07/19 22:59 Hx Obtained From: Patient, Family/Erp Consultant - Hx Last Menstrual Period: 09/04/17; IUD Onset/Duration: Still Present - chest pain, fatigue, Resolved - abd pain, diaphoresis, diarrhea Timing: Constant - chest pain, fatigue Current Severity: Moderate Pain Intensity: 4 Pain Scale Used: 0-10 Numeric Chest Pain Radiates: Yes Chest Pain Radiates To:: Shoulder - left Character: Tightness Associated Signs and Symptoms: Positive: Chest Pain, Weakness - fatigue, Other: - describes an episode of abdominal pain, diaphoresis, and diarrhea that occurred six days ago. Negative: Shortness of Breath, Diaphoresis, Nausea - Additional Pertinent History Primary Care Physician: [id number] - Allergy/Home Medications Allergies/Adverse Reactions: Allergies Allergy/AdvReac Type Severity Reaction Status Date / Time bee venom protein (honey bee) Allergy Airway Verified 03/07/19 21:53 Obstruction epinephrine Allergy See Comment Verified 03/07/19 21:53 hydralazine Allergy Difficulty Verified 03/07/19 21:53 Breathing hydrochlorothiazide Allergy Difficulty Verified 03/07/19 21:53 Breathing lisinopril Allergy Coughing Verified 03/07/19 21:53 valsartan Allergy Dizziness Verified 03/07/19 21:53 venom-wasp Allergy Anaphylatic Verified 03/07/19 21:53 Shock Corticosteroids AdvReac See Comment Verified 03/07/19 21:53 (Glucocorticoids) egg plant Allergy Hives Uncoded 03/07/19 21:53 lobster Allergy Difficulty Uncoded 03/07/19 21:53 Breathing PMH/Surg Hx/FS Hx/Imm Hx Endocrine/Hematology History: Reports: Other Endocrine/Hematological Disorders - chronic lymphocytic leukemia Denies: Hx Diabetes, Hx Thyroid Disease, Hx Anemia Cardiovascular History: Denies: Hx Congestive Heart Failure, Hx Deep Vein Thrombosis, Hx Hypertension , Hx Myocardial Infarction, Hx Pacemaker/ICD Respiratory History: Reports: Hx Chronic Bronchitis, Hx Sleep Apnea, Other Respiratory Problems/Disorders - Bronchitis a few times Denies: Hx Asthma, Hx Chronic Obstructive Pulmonary Disease (COPD), Hx Lung Cancer GI History: Denies: Hx Gall Bladder Disease, Hx Gastrointestinal Bleed, Hx Jaundice, Hx Ulcer, Hx Urosepsis History: Reports: Hx Kidney Stones Denies: Hx Renal Disease Musculoskeletal History: Reports: Other Musculoskeletal History - plantar fascitis in left foot Sensory History: Reports: Hx Contacts or Glasses Denies: Hx Hearing Aid, Other Sensory Impairments Opthamlomology History: Reports: Hx Contacts or Glasses Denies: Other Sensory Impairments Neurological History: Denies: Hx Dementia, Hx Migraine, Hx Seizures, Hx Transient Ischemic Attacks (TIA) Psychiatric History: Reports: Hx Anxiety, Hx Depression Denies: Hx Panic Disorder - Cancer History Cancer Type, Location and Year: CLL dx in 2004 Hx Chemotherapy: No Hx Radiation Therapy: No - Surgical History Surgery Procedure, Year, and Place: [facility] [place] . neck biopsy, RIGHT SIDED; Cardiac Cath Hx Anesthesia Reactions: No Infectious Disease History: No Infectious Disease History: Denies: Hx Clostridium Difficile, Hx Hepatitis, Hx Human Immunodeficiency Virus (HIV), Hx of Known/Suspected MRSA, Hx Shingles, Hx Tuberculosis, Hx Known/ Suspected VRE, Hx Known/Suspected VRSA, History Other Infectious Disease, Traveled Outside the [place] in Last 30 Days - Family History Known Family History: Positive: Cardiac Disease - maternal, earliest FHx -- grandmother at 42 from massive [place], Other - no FHx of Breast CA; mother living with Lewy body dementia. - Social History Alcohol Use: Rare Hx Substance Use: No Substance Use Type: Reports: None Hx Tobacco Use: No Smoking Status (MU): Never Smoked Tobacco Have You Smoked in the Last Year: No Review of Systems Positive: Fatigue. Negative: Skin Diaphoresis Positive: Chest Pain Negative: Shortness Of Breath Negative: Abdominal Pain - since resolved , Diarrhea - since resolved , Nausea All Other Systems Reviewed And Are Negative: Yes Physical Exam - Summary Physical Exam Summary: General: Well-developed, Well-nourished female. No acute distress. HEENT: Normocephalic, Atraumatic. Eyes: Conjuctiva normal, PERRL. Ears: TMs within normal limits. Nares: (-) discharge, (-) erythema. Oropharynx: Clear, mucous membranes moist, (-) exudates. Neck: Soft, FROM, (-) lymphadenopathy, (-) thyromegaly, (-) JVD. Cardiovascular: Normal sinus rhythm, (-) murmur. Lungs: Clear to auscultation bilaterally (-) wheezes, (-) rales, (-) rhonchi. Abdomen: Soft, non-tender, non-distended, (-) organomegaly, normal bowel sounds. Back: (-) CVA tenderness Extremities: No edema. Skin: Warm, dry, (-) rash. Neuro: Alert and oriented x3, no focal deficits. Psychiatric: Mood normal, affect normal. Triage Information Reviewed: Yes Vital Signs On Initial Exam: Initial Vitals Temp Pulse Resp BP Pulse Ox 97.8 F 74 18 160/98 97 03/07/19 23:02 03/07/19 23:02 03/07/19 23:02 03/07/19 23:02 03/07/19 23:02 Vital Signs Reviewed: Yes Procedures - Sedation Patient Received Moderate/Deep Sedation with Procedure: No Diagnostics - Vital Signs Vital Signs Temp Pulse Resp BP Pulse Ox 03/07/19 23:02 97.8 F 74 18 160/98 97 - Laboratory Result Diagrams: 03/07/19 23:53 03/07/19 23:53 Lab Statement: Any lab studies that have been ordered have been reviewed, and results considered in the medical decision making process. - Radiology CXR Radiology Interpretation Completed By: ED Physician Summary of Radiographic Findings: No infiltrate, no pleural effusion, pending official report. - EKG 2340 Cardiac Rate: NL - rate of 70 BPM EKG Rhythm: Sinus Rhythm Summary of EKG Findings: EKG showed NSR with rate of 70 BPM, no STEMI. This EKG was reviewed and interpreted by ED physician. Chest Pain Course/Dx - Course Course Of Treatment: 53-year-old female presents with chest pain. Sent from urgent care. Patient describes left chest pain and shoulder pain. Patient states she has chronic fatigue syndrome. They have been looking for sources of her fatigue. Recently had a stress test which was inconclusive as patient couldn't finish the exercises due to shortness of breath. No EKG changes. Patient also notes CLL. Has chronically elevated white blood cells. Patient has no EKG changes. Serial troponins negative. Patient discharged home. Follow up with PCP. Follow-up sooner for any worsening symptoms. - Diagnoses Provider Diagnoses: Chest pain Discharge ED - Sign-Out/Discharge Documenting (check all that apply): Patient Departure - discharge - Discharge Plan Condition: Stable Disposition: HOME Patient Education Materials: Chest Pain (ED) Referrals: Renita Hauser MD [Primary Care Provider] - 3 Days Additional Instructions: Please follow up with your primary care physician within three days. Please return to ED for any new or worsening symptoms. - Billing Disposition and Condition Condition: STABLE Disposition: Home - Attestation Statements Document Initiated by Artem: Yes Documenting Scribe: XAVI THOMPSON Provider For Whom Artem is Documenting (Include Credential): ÁNGEL VILLATORO MD Scribe Attestation: XAVI Farris, scribed for ÁNGEL VILLATORO MD on 03/10/19 at 1937. Scribe Documentation Reviewed: Yes Provider Attestation: The documentation as recorded by the XAVI colby accurately reflects the service I personally performed and the decisions made by , ÁNGEL VILLATORO MD Status of Scribe Document: Viewed
[2019-03-08] LABS: Hematocrit 38 % (35-47); Hemoglobin 12.4 g/dL (12.0-16.0); Mean Corpuscular HGB Conc 33 g/dL (31-36); Mean Corpuscular Hemoglobin 27 pg (27-31); Mean Corpuscular Volume 81 fL (80-97); Mean Platelet Volume 7.4 fL (7.4-10.4); Platelet Count 251 10^3/uL (150-450); Red Blood Count 4.63 10^6 /uL (3.70-4.87); Red Cell Distribution Width 16 % (10-15); White Blood Count 26.1 10^3/uL (3.5-10.8)
[2019-03-08 00:20] LABS: Albumin 3.8 g/dL (3.2-5.2); Albumin/Globulin Ratio 1.3 (1-3); BUN/Creatinine Ratio 19.3 (8-20); Calcium 9.5 mg/dL (8.6-10.3); EGFR African American 87.4 (>60); EGFR Non-African American 72.2 (>60); Globulin 2.9 g/dL (2-4); Potassium 4.1 mmol/L (3.5-5.0); Total Bilirubin 0.7 mg/dL (0.2-1.0); Total Protein 6.7 g/dL (6.4-8.9)
[2019-03-08 00:56] LABS: INR 1.03 (0.82-1.09)
[2019-03-08 01:36] LABS: ABS Basophils 0.2 10^3/ul (0-0.2); ABS Eosinophils 0.2 10^3/ul (0-0.6); ABS Lymphocytes 18.8 10^3/ul (1.0-4.8); ABS Monocytes 0.6 10^3/ul (0-0.8); ABS Neutrophils 6.3 10^3/ul (1.5-7.7); ABS Nucleated RBC 0.2 10^3/ul; Eosinophil % 0.9 %; Nucleated Red Blood Cells % 0.8
[2019-03-08 06:14] VITALS: BP 138/79
== END 2019-03-08 06:00 | disposition home or self-care (01) ==
LOC: ED 22:53
DX: R07.9 Chest pain, unspecified (principal); R53.1 Weakness; R53.83 Other fatigue
CPT/HCPCS: 36415; 71045; 80053; 83605; 84484; 85025; 85060; 85379; 85610; 93005; 99283